=== PATIENT | female | born 1950 | race Caucasian/White ===

== ENCOUNTER 2016-08-21 19:43 | Emergency (ER) | payer MEDICARE ==
[2016-08-21] MEDS ORDERED: NS 0.9% 1000 ML* 1,000 ML IV ONE (21:25)
[2016-08-21] MEDS ORDERED: Insulin REGULAR(*) 1 UNITS UNIT IV PUSH ONE ×2 (21:25→22:35)
[2016-08-21] MEDS ORDERED: Insulin REGULAR(*) 1 UNITS UNIT ONE (22:38)
[2016-08-21 23:40] VITALS: BP 133/59
--- NOTE | 2016-08-22 00:14 | ED ---
Lorenzo Rocha Erika, scribed for Jaylan Stockton MD on 08/21/16 at 2012 . Allergic Reaction/Systemic - HPI Summary HPI Summary: Patient is a 66-year-old female presenting to the ED with a CC of possible allergic reaction tonight. Patient reports that she ate shrimp tonight. She then developed nausea, but did not vomit. When she looked in the mirror, she noticed that her face was red and "blotchy," and states her skin was pruritic. Associated symptoms include slight SOB and lip swelling. She denies any tongue swelling, difficulty swallowing, or a throat closing sensation. Patient was given 50 mg Benadryl en route by EMS - no other medications given. Denies Hx [place]. Hx diabetes, myelodysplasia, asthma. FHx diabetes. Patient does not smoke or drink. - History of Current Complaint Time Seen by Provider: 08/21/16 19:44 Hx Obtained From: Patient Onset/Duration: Gradual Onset, Started hours ago, Still Present Timing: Constant Severity Initially: Mild Severity Currently: Moderate Character: Pruritus, Hives Alleviating Factor(s): Antihistamines - benadryl EMS tx Associated Signs And Symptoms: Positive: Nausea, Rash, Other: - lip swelling - Allergies/Home Medications Allergies/Adverse Reactions: Allergies Allergy/AdvReac Type Severity Reaction Status Date / Time Penicillins Allergy Intermediate Hives Verified 08/02/16 11:32 Adhesive Tape Allergy SKIN PEELS Verified 08/02/16 11:32 IVP DYE Allergy ANAPHYLATIC Uncoded 08/02/16 11:32 SHOCK, ASTHMA NYQUIL Allergy Nausea/Vomi Uncoded 08/02/16 11:32 ting PMH/Surg Hx/FS Hx/Imm Hx Endocrine/Hematology History: Reports: Hx Bone Marrow Disease - MYLEODYSPLASIA - LOW PLATELET COUNTS, Hx Diabetes, Hx Anemia, Other Endocrine/Hematological Disorders - MDS Cardiovascular History: Reports: Hx Hypercholesterolemia, Hx Hypertension, Other Cardiovascular Problems/Disorders - CHOLESTEROL CONTROL WITH MED Respiratory History: Reports: Hx Asthma, Hx Chronic Bronchitis, Hx Chronic Obstructive Pulmonary Disease (COPD) - possible - Lauren says no per pt., Hx Pneumonia, Hx Sleep Apnea - current CPAP user, Other Respiratory Problems/ Disorders - NODULE RIGHT LOWER LOBE, emphysema GI History: Reports: Hx Cirrhosis, Hx Gall Bladder Disease, Hx Gastroesophageal Reflux Disease, Hx Irritable Bowel, Other GI Disorders - hx of fluid around gallbladder and liver History: Reports: Hx Kidney Infection, Other Problems/Disorders - UTI's Musculoskeletal History: Reports: Hx Arthritis - NECK AND RIGHT KNEE, Hx Orthopedic Injury - deranged meniscus, Other Musculoskeletal History Denies: Hx Osteoporosis Sensory History: Reports: Hx Cataracts - surgery, Hx Contacts or Glasses Denies: Hx Hearing Aid Opthamlomology History: Reports: Hx Cataracts - surgery, Hx Contacts or Glasses Neurological History: Reports: Hx Migraine, Other Neuro Impairments/Disorders - DIABETIC NEUROPATHY Psychiatric History: Reports: Hx Depression - HX OF - Cancer History Cancer Type, Location and Year: basal cell carcinoma, nose 1999 [place] Hx Chemotherapy: No Hx Radiation Therapy: No - Surgical History Surgery Procedure, Year, and Place: Bladder suspension, D&C's, ovarian cyst removed, appendectomy, HYSTERECTOMY. L oophorectomy Hx Anesthesia Reactions: No - Immunization History Date of Tetanus Vaccine: up to date Date of Influenza Vaccine: 2014 Infectious Disease History: Denies: Traveled Outside the [place] in Last 30 Days Comment Only: Hx Hepatitis - POSSIBLE NEW DX - Family History Known Family History: Positive: Diabetes - Social History Alcohol Use: None Hx Substance Use: No Substance Use Type: Reports: None Hx Tobacco Use: No Smoking Status (MU): Never Smoked Tobacco Have You Smoked in the Last Year: No Review of Systems ENT: Other - lip swelling Positive: Shortness Of Breath Positive: Nausea. Negative: Vomiting Positive: Rash - itchy All Other Systems Reviewed And Are Negative: Yes Physical Exam - Summary Physical Exam Summary: VITAL SIGNS: Reviewed. GENERAL: Patient is an obese female who is lying comfortable in the stretcher. Patient is not in any acute respiratory distress. HEAD AND FACE: No signs of trauma. No ecchymosis, hematomas or skull depressions. EYES: PERRLA, EOMI x 2, No injected conjunctiva, no nystagmus. EARS: Hearing grossly intact. Ear canals and tympanic membranes are within normal limits. MOUTH: Throat with erythema or exudate, no swelling, open and patent. No tongue swelling. Positive lower lip swelling. NECK: Supple, trachea is midline, no adenopathy, no JVD, no carotid bruit, no c- spine tenderness, neck with full ROM. CHEST: Symmetric, no tenderness at palpation LUNGS: Clear to auscultation bilaterally. No wheezing or crackles. CVS: Regular rate and rhythm, S1 and S2 present, no murmurs or gallops appreciated. ABDOMEN: Soft, non-tender. No signs of distention. No rebound no guarding, and no masses palpated. Bowel sounds are normal. EXTREMITIES: FROM in all major joints, no edema, no cyanosis or clubbing. NEURO: Alert and oriented x 3. No acute neurological deficits. Speech is normal and follows commands. SKIN: Dry and warm. Positive diffuse erythema and hives. Triage Information Reviewed: Yes Vital Signs On Initial Exam: Temp Pulse Resp BP Pulse Ox 98.5 F 109 20 120/81 100 08/21/16 20:03 08/21/16 20:03 08/21/16 20:03 08/21/16 20:03 08/21/16 20:03 Vital Signs Reviewed: Yes Diagnostics - Vital Signs Vital Signs Temp Pulse Resp BP Pulse Ox 08/21/16 20:03 98.5 F 109 20 120/81 100 - Laboratory Lab Statement: Any lab studies that have been ordered have been reviewed, and results considered in the medical decision making process. Re-Evaluation - Re-Evaluation First Eval Re-Evaluation Time: 22:26 Change: Improved Comment: Patient feels much improved and will be discharged at this time Allergic Reaction Course/Dx - Course Assessment/Plan: Patient is a 66-year-old female presenting to the ED with a CC of possible allergic reaction tonight. Patient reports that she ate shrimp tonight. She then developed nausea, but did not vomit. When she looked in the mirror, she noticed that her face was red and "blotchy," and states her skin was pruritic. Associated symptoms include slight SOB and lip swelling. She denies any tongue swelling, difficulty swallowing, or a throat closing sensation. Patient was given 50 mg Benadryl en route by EMS - no other medications given. In the EMS course the pt was given Benadryl. On arrival to the ED pt was given IV fluids, decadron, epinephrine, Pepcid, and an albuterol treatment. After these medications, the pts Sx have significantly improved. After this, she has no lip swelling, tongue swelling, the throat is patent, and she does not feel like her throat is closing. She denies any SOB. We checked the finger stick since the pt was given decadron and it was 359. The pt was given 8 units of insulin and a bit of IV fluids. The second finger stick is 379. The pt was given an additional 10 units of insulin and now the finger stick has improved and now the pt will be discharged home with follow up from her PCP. She will be given a prescription for epi pen, prednisone, Pepcid, and Benadryl. She was also instructed to check her finger sticks more frequently as she will be taking prednisone 10 mg/day for the next four days. Patient was advised to return to the ED should she develop worsening symptoms. She understands and agrees. Pt is A&Ox3 and hemodynamically stable. - Diagnoses Differential Diagnosis/HQI/PQRI: Positive: Anaphylaxis, Angioedema, Local Allergic Reaction, Urticaria Provider Diagnoses: Allergic reaction to food, Hyperglycemia Discharge - Discharge Plan Condition: Stable Disposition: HOME Prescriptions: Diphenhydramine HCl [Benadryl Allergy] 25 mg PO TID PRN #20 tab PRN Reason: Allergy Symptoms Epinephrine [Epipen 2-Rafael] 0.3 mg IM ONCE #1 rafael Famotidine TAB* [Pepcid TAB*] 20 mg PO DAILY #5 tab predniSONE TAB* [Deltasone TAB*] 10 mg PO DAILY #4 tab Patient Education Materials: General Allergic Reaction (ED) Referrals: Go Swanson MD [Primary Care Provider] - The documentation as recorded by the Lorenzo chu Erika accurately reflects the service I personally performed and the decisions made by Mahin acosta Walter, MD.
== END 2016-08-21 23:50 | disposition home or self-care (01) ==
LOC: ED 19:43
DX: T78.1XXA Other adverse food reactions, not elsewhere classified, initial encounter (principal); E11.65 Type 2 diabetes mellitus with hyperglycemia; X58.XXXA Exposure to other specified factors, initial encounter; E78.00 Pure hypercholesterolemia, unspecified; I10 Essential (primary) hypertension; J45.909 Unspecified asthma, uncomplicated; Z85.22 Personal history of malignant neoplasm of nasal cavities, middle ear, and accessory sinuses; E11.40 Type 2 diabetes mellitus with diabetic neuropathy, unspecified; Z88.0 Allergy status to penicillin; D46.9 Myelodysplastic syndrome, unspecified
CPT/HCPCS: 96360; 99283

== ENCOUNTER 2018-06-03 12:10 | Inpatient (IN) | payer MEDICARE ==
[2018-06-03] MEDS ORDERED: NS 0.9% 1000 ML* 1,000 ML IV ONE (12:23)
[2018-06-03] MEDS ORDERED: Insulin REGULAR(*) 1 UNITS UNIT IV ONE (12:23)
[2018-06-03] MEDS ORDERED: Aspirin 81 mg CHEW TAB* 81 MG TAB.CHEW PO ONE (12:23)
--- NOTE | 2018-06-03 12:49 | ED ---
HPI Chest Pain - HPI Summary HPI Summary: This patient is a 68 year old F brought in by EMS presenting to [facility] with a chief complaint of chest pain across her chest radiating to her back last night. She took one nitroglycerin and the symptoms resolved. She was feeling chest pain and weakness this morning and her PCP recommended that she come to [facility]. The chest pain this morning has resolved. Patients teaching specialists is Dr. Enriquez. Patient took Plavix this morning. Patient denies current chest pain, shortness of breath and nausea. The patient is not a smoker. Last Hemoglobin was 11 g/dl. Glucose 460 g/dl per EMS. - History of Current Complaint Chief Complaint: EDChestPainROMI Time Seen by Provider: 06/03/18 12:16 Hx Obtained From: Patient Onset/Duration: Atraumatic Timing: Intermittent Initial Severity: Mild Current Severity: Mild Pain Intensity: 0 Pain Scale Used: 0-10 Numeric Chest Pain Location: Diffuse Chest Pain Radiates: Yes Chest Pain Radiates To:: Back Associated Signs and Symptoms: Positive: Chest Pain, Weakness - Additional Pertinent History Primary Care Physician: [id number] - Allergy/Home Medications Allergies/Adverse Reactions: Allergies Allergy/AdvReac Type Severity Reaction Status Date / Time iodine Allergy Severe Anaphylatic Verified 09/29/17 08:28 Shock Penicillins Allergy Intermediate Hives Verified 09/29/17 08:28 shrimp Allergy Mild Hives Verified 09/29/17 08:28 Adhesive Tape Allergy SKIN PEELS Verified 05/12/17 11:56 IVP DYE Allergy ANAPHYLATIC Uncoded 05/12/17 11:56 SHOCK, ASTHMA NYQUIL AdvReac Nausea/Vomi Uncoded 05/12/17 11:56 ting Home Medications: Home Medications Albuterol HFA INHALER* [Ventolin HFA Inhaler*] 2 puff INH QID PRN 06/03/18 [ History Confirmed 06/03/18] Atorvastatin* [Lipitor*] 40 mg PO DAILY 06/03/18 [History Confirmed 06/03/18] Calcium Carbonate/Vitamin D3 [Calcium 600 + Vit D Tablet] 1 tab PO DAILY [History Confirmed 06/03/18] Clotrimazole/Betamethasone* [Lotrisone Cream*] 1 applic TOPICAL BID PRN [History Confirmed 06/03/18] Docusate CAP* [Colace Cap*] 200 mg PO BEDTIME 06/03/18 [History Confirmed ] EPINEPHrine [Epipen 2-Rafael] 0.3 mg IM ONCE PRN 06/03/18 [History Confirmed ] Ferrous Sulfate TAB* 650 mg PO BID 06/03/18 [History Confirmed 06/03/18] Fluticasone NASAL SPRAY 50MCG* [Flonase NASAL SPRAY 50MCG*] 1 spray BOTH NARES BID 06/03/18 [History Confirmed 06/03/18] Gemfibrozil TAB* [Lopid TAB*] 600 mg PO BID 06/03/18 [History Confirmed ] Ibuprofen TAB* [Motrin TAB* 600 MG] 600 mg PO Q8H PRN 06/03/18 [History Confirmed 06/03/18] Loperamide CAP* [Imodium CAP*] 2 mg PO DAILY PRN 06/03/18 [History Confirmed ] Magnesium Oxide [Magnesium] 1,000 mg PO DAILY 06/03/18 [History Confirmed ] Methylcellulose [Fiber Therapy] 1,500 mg PO DAILY 06/03/18 [History Confirmed ] Metoprolol Succinate XL TAB* [Toprol XL TAB*] 75 mg PO DAILY 06/03/18 [History Confirmed 06/03/18] Nitroglycerin TAB 0.4 MG* 0.4 mg SL Q5M PRN 06/03/18 [History Confirmed 06/03/18 ] Ondansetron ODT TAB* [Zofran 4 MG Odt TAB*] 4 mg PO BID PRN 06/03/18 [History Confirmed 06/03/18] Zolpidem TAB* [Ambien TAB*] 5 - 10 mg PO BEDTIME PRN 06/03/18 [History Confirmed 06/03/18] traMADol TAB* [Ultram*] 50 mg PO TID PRN 06/03/18 [History Confirmed 06/03/18] PMH/Surg Hx/FS Hx/Imm Hx Endocrine/Hematology History: Reports: Hx Bone Marrow Disease - MYLEODYSPLASIA - LOW PLATELET COUNTS, Hx Diabetes, Hx Anemia, Other Endocrine/Hematological Disorders - MDS Cardiovascular History: Reports: Hx Hypercholesterolemia, Hx Hypertension, Other Cardiovascular Problems/Disorders - CHOLESTEROL CONTROL WITH MED Respiratory History: Reports: Hx Asthma, Hx Chronic Bronchitis, Hx Chronic Obstructive Pulmonary Disease (COPD) - possible - Lauren says no per pt., Hx Pneumonia, Hx Sleep Apnea - current CPAP user, Other Respiratory Problems/ Disorders - NODULE RIGHT LOWER LOBE, emphysema GI History: Reports: Hx Cirrhosis, Hx Gall Bladder Disease, Hx Gastroesophageal Reflux Disease, Hx Irritable Bowel, Other GI Disorders - hx of fluid around gallbladder and liver History: Reports: Hx Kidney Infection, Other Problems/Disorders - UTI's Musculoskeletal History: Reports: Hx Arthritis - NECK AND RIGHT KNEE, Hx Orthopedic Injury - deranged meniscus, Other Musculoskeletal History Denies: Hx Osteoporosis Sensory History: Reports: Hx Cataracts - surgery, Hx Contacts or Glasses Denies: Hx Hearing Aid Opthamlomology History: Reports: Hx Cataracts - surgery, Hx Contacts or Glasses Neurological History: Reports: Hx Migraine, Other Neuro Impairments/Disorders - DIABETIC NEUROPATHY Psychiatric History: Reports: Hx Depression - HX OF - Cancer History Cancer Type, Location and Year: basal cell carcinoma, nose 1999 [place] Hx Chemotherapy: No Hx Radiation Therapy: No - Surgical History Surgery Procedure, Year, and Place: Bladder suspension, D&C's, ovarian cyst removed, appendectomy, HYSTERECTOMY. L oophorectomy Hx Anesthesia Reactions: No - Immunization History Date of Tetanus Vaccine: up to date Date of Influenza Vaccine: 2014 Infectious Disease History: No Infectious Disease History: Denies: Traveled Outside the [place] in Last 30 Days Comment Only: Hx Hepatitis - POSSIBLE NEW DX - Family History Known Family History: Positive: Diabetes - Social History Alcohol Use: None Hx Substance Use: No Substance Use Type: Reports: None Hx Tobacco Use: No Smoking Status (MU): Never Smoked Tobacco Have You Smoked in the Last Year: No Review of Systems Negative: Fever Positive: Chest Pain - Radiates to back Positive: Weakness All Other Systems Reviewed And Are Negative: Yes Physical Exam - Summary Physical Exam Summary: Appearance: Well appearing, no pain distress Skin: warm, dry, reflects adequate perfusion. Bruising. Mild pallor on hands. Systolic murmur on heart. Mild kyphosis of her back. No lower extremity edema. Head/face: normal Eyes: EOMI, REINA ENT: mucous membranes moist Neck: supple, non-tender Respiratory: CTA, breath sounds present Cardiovascular: RRR, pulses symmetrical. Systolic murmur. Abdomen: non-tender, soft Bowel Sounds: present Musculoskeletal: normal, strength/ROM intact/ Mild kyphosis. Neuro: normal, sensory motor intact, A&Ox3 Triage Information Reviewed: Yes Vital Signs On Initial Exam: Initial Vitals Temp Pulse Resp BP Pulse Ox 98.9 F 72 16 119/58 97 06/03/18 12:13 06/03/18 12:13 06/03/18 12:13 06/03/18 12:13 06/03/18 12:13 Vital Signs Reviewed: Yes Diagnostics - Vital Signs Vital Signs Temp Pulse Resp BP Pulse Ox 06/03/18 12:13 98.9 F 72 16 119/58 97 - Laboratory Result Diagrams: 06/03/18 12:45 06/03/18 12:45 Lab Statement: Any lab studies that have been ordered have been reviewed, and results considered in the medical decision making process. - Radiology CXR Radiology Interpretation Completed By: Radiologist - Stigmata of obstructive lung disease. No significant chagne in RIGHT lung base nodule. No acute pulmonary or cardiac process evident. - EKG 1233 Cardiac Rate: NL - 69 EKG Rhythm: Sinus Rhythm Summary of EKG Findings: Mild ST-depressions V5, V6, 1, 2. Flipped T-waves in AVL. Chest Pain Course/Dx - Course Course Of Treatment: Patient with history of myelodysplasia presents with chest pain at rest and pallor. Her hemoglobin proved to be 6.6 so we will transfuse 2 units of blood. Baby aspirin given and given nitroglycerin as needed. Did have some lateral ST depressions likely related to her low hemoglobin. Troponin is detected but not elevated at this point. She will require admission for further. Hospitalist to admit. - Chest Pain Differential Diagnosis/HQI/PQRI: Acute OK, ACS, Angina, CHF, Chest Wall, Lower Respiratory Infection, Other: - Anemia - Diagnoses Provider Diagnoses: Unstable angina, Anemia, Myelodysplasia (myelodysplastic syndrome) - Provider Notifications Discussed Care Of Patient With: Sarah Rosas - Hospitalist Time Discussed With Above Provider: 12:57 Instructed by Provider To: Admit As Inpatient - Critical Care Time Critical Care Time: 30-74 min - Critical care time is exclusive of separately billable procedures Discharge - Sign-Out/Discharge Documenting (check all that apply): Patient Departure - Admit - Discharge Plan Condition: Stable Disposition: ADMITTED TO [facility] Referrals: Go Swanson MD [Primary Care Provider] - - Billing Disposition and Condition Condition: STABLE Disposition: Admitted to [facility] - Attestation Statements Document Initiated by Angelique: Yes Documenting Scribe: Desmond Charles Provider For Whom Angelique is Documenting (Include Credential): Gino Fong MD Scribe Attestation: Desmond Rocha, scribed for Gino Fong MD on 06/03/18 at 1411. Scribe Documentation Reviewed: Yes Provider Attestation: The documentation as recorded by the Desmond chu accurately reflects the service I personally performed and the decisions made by me, Gino Fong MD
[2018-06-03] MEDS ORDERED: Insulin REGULAR(*) 1 UNITS UNIT IV PUSH ONE (12:52)
[2018-06-03] MEDS ORDERED: Nitroglycerin 2% OINT* 1 GM PAK TOPICAL ONE (12:57)
[2018-06-03 12:58] LABS: ABS Basophils 0 10^3/ul (0-0.2); ABS Eosinophils 0.3 10^3/ul (0-0.6); ABS Monocytes 0.5 10^3/ul (0-0.8); ABS Neutrophils 5.7 10^3/ul (1.5-7.7); ABS Nucleated RBC 0 10^3/ul; Eosinophil % 3.9 % (0-6); Hematocrit 19 % (35-47); Hemoglobin 6.6 g/dl (12.0-16.0); Lymphocyte % 13.6 % (25-47); Mean Corpuscular HGB Conc 34 g/dl (31-36); Mean Corpuscular Hemoglobin 32 pg (27-31); Mean Corpuscular Volume 95 fL (80-97); Mean Platelet Volume 6.5 fL (7.4-10.4); Nucleated Red Blood Cells % 0.6; Platelet Count 148 10^3/ul (150-450); Red Blood Count 2.03 10^6/ul (4.00-5.40); Red Cell Distribution Width 16 % (10.5-15); White Blood Count 7.6 10^3/ul (3.5-10.8)
[2018-06-03 13:05] LABS: Urine Appearance Clear; Urine Blood 1+ (Negative); Urine Color Straw; Urine Ketones Negative (Negative); Urine Protein Negative (Negative); Urine Red Blood Cell Trace(0-2/hpf) (Absent); Urine Specific Gravity 1.011 (1.010-1.030); Urine Urobilinogen Negative (Negative); Urine White Blood Cell Trace(0-5/hpf) (Absent)
[2018-06-03 13:19] LABS: INR 1.06 (0.77-1.02)
[2018-06-03 13:21] LABS: EGFR Non-African American 38.1 (>60)
[2018-06-03] MEDS ORDERED: Calcium Gluconate INJ* 2 GM in NS 0.9% 100 ML* 100 ML IVPB ONE (14:20)
[2018-06-03] MEDS ORDERED: Pantoprazole IV* 40 MG IV ONE (14:20)
[2018-06-03] MEDS ORDERED: Sodium Polystyrene ORAL.SOL* 15 GM/60 ML BTL PO ONE (14:20)
[2018-06-03] MEDS ORDERED: Dextrose 50% Syringe 50 ML* 25 GM/50 ML SYRINGE IV PUSH PRN (14:20)
[2018-06-03] MEDS ORDERED: Ondansetron INJ* 2 MG/ML VIAL IV PRN (14:20)
[2018-06-03] MEDS ORDERED: traMADol TAB* 50 MG PO PRN (14:24)
[2018-06-03] MEDS ORDERED: Albuterol 2.5 MG/3 ML NEB.SOL* (0.083%) INH PRN (14:24)
[2018-06-03] MEDS ORDERED: Furosemide IV* 10 MG/ML 2 ML VIAL (20 MG) IV SLOW PU ONE (14:30)
[2018-06-03] MEDS: Pantoprazole* 80 mg IN NS 80 MG/250 ML BAG IVPB SCH (14:54)
[2018-06-03] MEDS ORDERED: Octreotide Acetate* 50 MCG in NS 0.9% 50 ML* 50 ML IVPB ONE (17:36)
[2018-06-03] MEDS ORDERED: cefTRIAXone(*) 1 GM in NS 0.9% 50 ML* 50 ML IVPB SCH (18:00)
[2018-06-03] MEDS: Insulin LISPRO* 1 UNITS UNIT SUBCUT SCH (18:19)
[2018-06-03] MEDS ORDERED: Octreotide Acetate* 500 MCG in NS 0.9% 100 ML* 100 ML IVPB SCH (18:30)
[2018-06-03] MEDS: cefTRIAXone(*) 1 GM in NS 0.9% 50 ML* 50 ML IVPB SCH (19:28)
[2018-06-03 19:45] LABS: Hematocrit 21 % (35-47); Hemoglobin 7.1 g/dl (12.0-16.0)
[2018-06-03 20:00] LABS: EGFR Non-African American 35.7 (>60)
[2018-06-03] MEDS: Ferrous Sulfate TAB* 325 MG PO SCH (20:13)
[2018-06-03] MEDS: Docusate CAP* 100 MG PO SCH (20:13)
--- NOTE | 2018-06-03 20:28 | HP ---
CC: Dr. Swanson* HISTORY AND PHYSICAL: DATE OF ADMISSION: 06/03/18 PRIMARY CARE PROVIDER: Dr. Swanson. ATTENDING PHYSICIAN WHILE IN THE HOSPITAL: Sarah Morrison MD* (report dictated by Jesus Chamorro NP). CHIEF COMPLAINT: 1. Chest pain. 2. Dyspnea on exertion. 3. Weakness. HISTORY OF PRESENT ILLNESS: Ms. Mcconnell is a 68-year-old female patient with multiple medical problems. She has a history of myelodysplastic syndrome, in addition to this also is diabetic; has a history of cirrhosis; history of lung nodules that have been stable; history of skin cancer; hypertension; FILIPE, she does wear a CPAP. She has a history of asthma, CAD which is being medically controlled, and a history of hyperlipidemia. She does come into our emergency department today stating that over the last few days she just has not been feeling well. She has been feeling fatigued, she has been feeling lightheaded. She has been having chest discomfort with exertion, she has been short of breath with exertion. She denied having any knowledge of tarry stools. She does state that she has not been taking NSAIDs. She is on Plavix for the history of CAD. She has never had a stent before. She says that she has been just feeling more fatigued. She says that she typically feels this way when her blood was low, but she notes that she had her blood checked about 10 days ago and her hemoglobin was 11. She did have 1 episode of bright red blood per rectum, but none today. She was concerned because she just was not getting any better. She called Dr. Swanson's office, the nurse there was concerned and had her come into the ED. She comes into the ED today. She was initially evaluated and was noted to have EKG changes. There was concern for the chest pressure, but on further evaluation it was noted that her H and H was significantly decreased and because of this, we were asked to evaluate for admission. PAST MEDICAL HISTORY: Significant for: 1. Myelodysplastic syndrome. 2. Diabetes. 3. Cirrhosis. 4. History of lung nodule, which has been stable. 5. Skin cancer. 6. Hypertension. 7. FILIPE. 8. Asthma. 9. CAD. 10. Hyperlipidemia. 11. Aortic stenosis. PAST SURGICAL HISTORY: 1. She has had an appendectomy. 2. Laparoscopic cholecystectomy. 3. D and C x2. 4. Hysterectomy. HOME MEDICATIONS: Include: 1. Ibuprofen 600 mg every 8 hours as needed. 2. Oxybutynin 10 mg p.o. daily. 3. Epinephrine 0.3 mg IM once daily as needed for allergic reaction. 4. Calcium carbonate 1 tablet p.o. daily. 5. Multivitamin 1 tablet daily. 6. Imodium 2 mg p.o. daily as needed. 7. Vitamin C 1000 mg p.o. daily in the morning. 8. Metformin 1000 mg p.o. b.i.d. 9. Glipizide 5 mg p.o. b.i.d. 10. Lisinopril 10 mg p.o. daily. 11. Ferrous sulfate 650 mg p.o. b.i.d. 12. Ventolin 2 puffs inhaled every 4 hours as needed. 13. Singulair 10 mg p.o. daily. 14. Symbicort 2 puffs inhaled b.i.d. 15. Ventolin 2.5 mg inhaled every 4 hours. 16. Magnesium 1000 mg daily. 17. Fiber therapy 1500 mg p.o. daily. 18. Potassium 10 mEq p.o. daily. 19. Omeprazole 40 mg daily. 20. Lotrisone 1 application topically b.i.d. as needed. 21. Lasix 40 mg daily. 22. Zofran 4 mg p.o. b.i.d. as needed. 23. Lipitor 40 mg daily. 24. Ambien 5 to 10 mg p.o. at bedtime as needed. 25. Colace 200 mg p.o. at bedtime. 26. Nitro 0.4 mg sublingual q.5 minutes p.r.n. chest pain x3. 27. Plavix 75 mg daily. 28. Metoprolol XL 75 mg daily. 29. Flonase 1 spray both nares b.i.d. 30. Lopid 600 mg p.o. b.i.d. 31. Tramadol 50 mg p.o. t.i.d. as needed. ALLERGIES TO MEDICATIONS: Include IODINE, PENICILLIN, SHRIMP, TAPE, CT DYE, and NYQUIL. FAMILY HISTORY: Mother had a history of diabetes and CHF. Father had a history of dementia. SOCIAL HISTORY: She does not smoke. She does not drink. Surrogate decision makers are her brother and her niece. REVIEW OF SYSTEMS: There is no documented fever. She denied having any significant weight change. There is no double vision. She denies having any ear discharge. There is no rhinorrhea. There was no sore throat. No thyroid enlargement. There was chest pain per my HPI. There was orthopnea. There was no nocturnal dyspnea. She denied having any abdominal discomfort. There was no vomiting, no diarrhea. No dysuria was reported, no frequency. No seizure, no loss of consciousness. Review of 14 systems was completed, all others negative. PHYSICAL EXAMINATION GENERAL: At this time, Ms. Mcconnell is a 68-year-old female patient. She is chronically ill appearing. She is sitting in the ED stretcher. She does not appear to be in any acute distress. VITAL SIGNS: Blood pressure 133/55, pulse 67, respirations 18, O2 sat 96%, temperature 98.9. HEENT: Head: Atraumatic and normocephalic. Eyes: EOMs are intact. Sclerae anicteric and not pale. Throat: Oral mucosa appears to be moist. No oropharyngeal erythema. NECK: Supple. LUNGS: Clear to auscultation bilaterally. There were no wheezes, rales, or rhonchi. HEART: Sounds S1, S2. Had a regular rate and rhythm. She did have a grade 2- 3 murmur heard in the aortic listening area. There were no rubs or gallops. ABDOMEN: Soft. It was flat, nontender. Bowel sounds were present. EXTREMITIES: Pulses were 2+ throughout. She is able to move all 4 extremities with 5/5 strength. NEUROLOGIC: The patient is awake. She is alert. She is oriented x3. Tongue midline. Ethanol Operator were equal. There were no gross focal deficits. SKIN: Intact. DIAGNOSTIC STUDIES/LAB DATA: WBC of 7.6, RBC of 2.03, hemoglobin of 6.6, hematocrit of 19, and platelet count of 145,000. Her baseline hemoglobin appears to be right around 9, it was 11 on 05/25/18. The INR was 1.06, PTT of 30.4. The sodium was 131, potassium was 5.9, chloride of 98, bicarb was 24, BUN 66, creatinine of 1.37. Her baseline creatinine does appear to be around 0.7, but it was elevated previously at 1.5. The glucose was 319, lactic 2.5, calcium 9.4. Total bili 0.3, AST 20, ALT 18, alk phos 66. Troponin 0.03. Albumin 3.9. TSH pending. Urine showed 1+ blood, 1+ bacteria, 2+ glucose. She did have imaging in the ED starting out with chest x-ray, which showed stigmata of obstructive lung disease, no significant change in right lung base nodule, no acute pulmonary or cardiac process evident. She had an EKG obtained today, which does show a normal sinus rhythm with a rate of 69. She does have some ST depression in lead I, III. She had T-wave inversion in aVR and aVL. There was depression noted in V4, V5 and V6. When you look to the previous EKG, it was there previously, but it is more pronounced today. She did have an echo back in 2016, which revealed EF of 55% to 60%. She did have an echo, which also showed previously that she had moderate aortic stenosis. Old medical records were reviewed. ASSESSMENT AND PLAN: Ms. Mcconnell is a 68-year-old female patient coming into the ED today with complaints of chest pain, dyspnea on exertion, weakness, and not feeling well, on evaluation was noted to have significant anemia. She will be admitted under inpatient status for: 1. Anemia. I am concerned because 10 days ago her hemoglobin was noted to be 11, it is now 6.6. There have been no reports of tarry stools. There was 1 episode of bloody toilet paper, but no other episodes and she is not having abdominal pain. I am concerned that she does have ibuprofen listed on her med list, she says she is not taking it, but I am concerned for possible upper GI bleed. Hemoccult has been ordered and has been sent down and is pending. My plan will be to give her 2 units of blood. I suspect the chest pain, the dyspnea on exertion and weakness is demand ischemia. I am going to go ahead and get 2 units of blood, Lasix in between. Serial H and H have been ordered, 2 peripheral IVs, and I will start her on a PPI drip. I did touch base with GI and they should be evaluating. I am holding her Plavix temporarily as she does not have a recent stent until we can definitively rule out that she is not actively bleeding and we will continue to follow. 2. Myelodysplastic syndrome. Again, I suspect the acute drop in her H and H could be related to bleeding. We are going to give her 2 units of blood and we will continue to follow. She can follow with Dr. Arellano. 3. Diabetes. Lispro sliding scale. 4. History of cirrhosis. This is a nonalcoholic cirrhosis. She can follow with her PCP. 5. History of lung nodule. Follow up with Dr. Arellano. It has been stable. She can follow up with PCP. 6. History of hypertension. I am going to hold all of her medications with the exception of her beta-marissa, which I have switched over to immediate release metoprolol tartrate from succinate in the setting of acute illness. 7. Hyperkalemia, multifactorial. It could be related to the fact that she was on an SHANICE inhibitor, in addition to this also is taking potassium. I am going to give her potassium gluconate. She received insulin here in the ED. We will repeat this. We will get Kayexalate going. In addition to this, we will place her on telemetry and repeat her BMP later tonight. 8. Elevated lactic, probably secondary to the low H and H. She does not appear to be septic. We will repeat this after getting the 2 units of blood. 9. Coronary artery disease. Continue her beta-marissa and statin therapy. Holding the Plavix in the setting of possible bleeding. 10. Hyperlipidemia. Continue her Lopid and statin therapy. 11. Asthma. Continue her p.r.n. nebulizer and her Symbicort. She is stable. 12. Obstructive sleep apnea. I did order CPAP. 13. DVT prophylaxis: SCDs have been ordered. I am holding on heparin given the concern for possible bleeding. 14. Code status: Full code. 15. Fluids, electrolytes, and nutrition: Clear liquid diet has been ordered. TIME SPENT: Time spent on admission was 60 minutes, greater than half of the time was spent [id number] with the patient obtaining my history and physical, other half of the time was spent going over the plan of care with the patient and implementing plan of care. I did discuss the plan of care with my attending, Dr. Morrison; she is in agreement. JESUS CHAMORRO, KAIT [id number]/[facility] #: [id number] GABBY
[2018-06-03] MEDS: Mometasone/Formoter 200/5 MDI INH SCH (21:00)
--- NOTE | 2018-06-03 21:55 | CONS ---
GASTROENTEROLOGY CONSULT NOTE: DATE OF CONSULT: 06/03/18. REQUESTING PROVIDER: Jesus Chamorro NP. REASON FOR CONSULT: Anemia. HISTORY OF PRESENT ILLNESS: Ms. Mcconnell is a 68-year-old woman with a history of CAD on Plavix, obesity, HARTMANN cirrhosis, anemia with a diagnosis of myelodysplasia, diabetes, COPD/asthma, sleep apnea, who was admitted with chest pain and acute-on- chronic anemia. Ms. Mcconnell was in usual state of health until yesterday evening when she had an episode of chest pain, which responded to nitro. This morning she was walking across the parking lot and had a similar episode. She did not take nitro. She was brought in EMS. The chest pain has since improved, although she feels like it is still present a bit when she is moving around. She describes some weakness, but denies any other acute complaints. She was brought to the ER, and was noted to be hemodynamically stable. Labs did reveal a white count of 7.6, hemoglobin of 6.6, hematocrit of 19, platelet count of 148. Sodium of 131 , potassium of 5.9. BUN is 66. Creatinine is 1.37, and a lactic acid of 2.5. The patient's prior labs were reviewed and she was actually noted to have a hematocrit of 33 on 05/25/18, and a hemoglobin of 11 at this time. She denies any overt GI bleeding. She says that she has 2 to 3 soft brown stools a day. She denies seeing any black or bloody stool. She reports some mild chronic nausea which is unchanged. She has not had any emesis. She denies any dysphagia or GERD. She is on a PPI daily. She is on Plavix for her cardiac disease. On review, Ms. Mcconnell with a history of anemia requiring blood transfusions. She was diagnosed with myelofibrosis, and myelodysplasia, and had a bone marrow biopsy in 2016. She has been followed by GI in the past. Most recently, she had an EGD and colon done in October of 2016. At that time, she was noted to have some scarring at the lower esophagus and GE junction. There were no varices noted. There is no significant portal hypertensive gastropathy or GAVE noted. A colonoscopy was done at that time as well which demonstrated only a small rectosigmoid polyp. None of these findings were really felt to give the explanation for her acute anemia at that time. PAST MEDICAL HISTORY: The patient's past medical history is extensive. She has HARTMANN cirrhosis with ascites, CAD on Plavix, diabetes, COPD/asthma, FILIPE, anemia with myelodysplasia, IBS, obesity. PAST SURGICAL HISTORY: D and C, partial hysterectomy, appendectomy, cholecystectomy. MEDICATIONS: MAR reviewed. The patient is on: 1. Albuterol. 2. Atorvastatin. 3. Budesonide/formoterol inhaler. 4. Calcium with vitamin D. 5. Plavix. 6. Iron 2 tablets twice a day. 7. Flonase. 8. Lasix 40 mg daily. 9. Gemfibrozil twice daily. 10. Glipizide 5 mg twice daily. 11. Lisinopril 10 mg daily. 12. Magnesium oxide daily. 13. Metformin 1 g b.i.d. 14. Fiber. 15. Metoprolol XL. 16. Singulair. 17. Multivitamin. 18. Omeprazole 40 mg daily. 19. Oxybutynin. 20. Potassium. 21. Januvia. 22. Tramadol. 23. Ambien. 24. Nitroglycerin as needed. ALLERGIES: IODINE, PENICILLIN, SHRIMP, ADHESIVE TAPE, and IV DYE, and NYQUIL are listed. FAMILY HISTORY: No known history of GI malignancies or IBD. 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 . No smoking, alcohol, or drug use. REVIEW OF SYSTEMS: The patient reports weakness. Full review of systems, otherwise unremarkable except as above. PHYSICAL EXAM: Vital Signs: Temp 98.2, heart rate 65, blood pressure 117/44, 100% on room air. General: Well-appearing, elderly woman, resting in bed, appears chronically ill, but in no acute distress. HEENT: Mucous membranes moist. Anicteric sclerae. Cardiovascular: Regular rate and rhythm. No murmurs , rubs, or gallops. Pulm: Breathing comfortably. Lungs: Clear in anterior lung ny. Abdomen: Soft, possible [id number] ascites, although difficult to determine ascites given body habitus. Mild tenderness diffusely. No rebound tenderness or guarding. Extremities: No jaundice. DIAGNOSTIC STUDIES/LAB DATA: Labs reviewed and summarized in HPI. Again, white count is 7.6, hemoglobin 6.6, hematocrit 19, platelet count 148. MCV 95 and INR 1.06. Sodium 131, potassium 5.9, chloride 98, BUN 66, creatinine 1.37, lactic acid 2.5, glucose 319. AST 20, ALT 18, alk phos 66, bili 0.3. Troponin 0.03. Albumin 3.9. Imaging: EKG with possible mild ST segment depressions in V5, V6, I, and II. Chest x-ray with stigmata of obstructive lung disease. No abdominal imaging done this admission. Endoscopy, EGD, and colonoscopy reports from October of 2016, summarized in HPI. IMPRESSION AND RECOMMENDATIONS: Ms. Mcconnell is a 68-year-old woman with an extensive list of medical comorbidities including HARTMANN cirrhosis with ascites, chronic obstructive pulmonary disease, diabetes and coronary artery disease on Plavix, who was admitted with chest pain and found to have [id number] anemia. Ms. Mcconnell certainly has had an acute drop in her blood counts compared to , at which point her hemoglobin was 11. Currently, her hemoglobin is 6.6. She denies any overt GI bleeding and reports brown stool on a daily basis. She has not had any evidence those of hematemesis. Her MCV is normal arguing against significant iron-deficiency anemia. It is unclear what contribution the patient's myelodysplasia is having to her current anemia, although certainly , she does appear to have had an acute drop, recent concern for possible GI bleed; however, I am reassured that there is no significant active GI bleeding based on history. We will agree with the plan for blood transfusion given symptomatic anemia with chest pain and possible EKG findings of ST segment depression in several leads. Recently, the patient's troponin is normal on admission. 1. Please continue PPI, can switch to IV b.i.d. 2. Can give clear diet for now. 3. We will consider starting ceftriaxone for SBP prophylaxis given concern for possible GI bleeding in a cirrhotic. 4. Consider octreotide drip empirically, although I have quite a low suspicion for a cirrhotic related active bleeding. 5. Please check stool for occult blood. Please also send iron studies. 6. We will defer EGD at this moment given the absence of overt GI bleeding. The patient needs to be resuscitated from a blood transfusion standpoint. Additionally, she has had some changes on her EKG, which needs to be monitored. She also is hyperkalemic, which needs to be treated prior to procedure. We will monitor labs and follow her clinically to determine timing of endoscopic evaluation as I suspect this will likely be necessary given her acute drop in crit. 7. GI will continue to follow. Thank you very much for this consult. [id number]/[facility] #: [id number] GABBY
[2018-06-03] MEDS: Fluticasone NASAL SPRAY 50MCG* 16 gm SPRAY BTL BOTH NARES SCH (23:00)
[2018-06-03] MEDS: Octreotide Acetate* 500 MCG in NS 0.9% 100 ML* 100 ML IVPB SCH (23:30)
[2018-06-03] MEDS: Acetaminophen TAB* 325 MG PO PRN (23:59)
[2018-06-04] MEDS: NS 0.9% 1000 ML* 1,000 ML IV SCH ×2 (00:08→10:21)
[2018-06-04] MEDS: Pantoprazole* 80 mg IN NS 80 MG/250 ML BAG IVPB SCH ×3 (01:13→23:07)
[2018-06-04 01:24] LABS: Hematocrit 23 % (35-47); Hemoglobin 7.7 g/dl (12.0-16.0)
[2018-06-04 05:57] LABS: ABS Basophils 0 10^3/ul (0-0.2); ABS Eosinophils 0.3 10^3/ul (0-0.6); ABS Lymphocytes 0.9 10^3/ul (1.0-4.8); ABS Monocytes 0.4 10^3/ul (0-0.8); ABS Neutrophils 4.4 10^3/ul (1.5-7.7); ABS Nucleated RBC 0 10^3/ul; Eosinophil % 5.3 % (0-6); Hematocrit 23 % (35-47); Hemoglobin 7.9 g/dl (12.0-16.0); Lymphocyte % 14.6 % (25-47); Mean Corpuscular HGB Conc 34 g/dl (31-36); Mean Corpuscular Hemoglobin 31 pg (27-31); Mean Corpuscular Volume 92 fL (80-97); Mean Platelet Volume 6.5 fL (7.4-10.4); Nucleated Red Blood Cells % 0.3; Platelet Count 120 10^3/ul (150-450); Red Blood Count 2.53 10^6/ul (4.00-5.40); Red Cell Distribution Width 17 % (10.5-15)
[2018-06-04 06:06] LABS: INR 1.14 (0.77-1.02)
[2018-06-04 06:15] LABS: EGFR Non-African American 38.4 (>60)
[2018-06-04] MEDS: Mometasone/Formoter 200/5 MDI INH SCH ×2 (07:56→20:24)
[2018-06-04 08:14] LABS: Hematocrit 22 % (35-47); Hemoglobin 7.4 g/dl (12.0-16.0)
--- NOTE | 2018-06-04 08:18 | PN ---
Progress Note - Progress Note Date of Service: 06/04/18 Note: pt seen and examined; feels well, better than yesterday; green bm this am; no blood; no abd pain, n/v; pt denies any blood in stool; heme + EGD/colon in 2016 for same issues; no obvious sources; hgb decreased from 11 about 1.5 wks ago; pt on plavix, off now; denies NSAIDs VS; 98.2, 143/50, 71,20, 97% nad, alert +bs, obese, soft, NT/Nd WBC 6, PLTS 120 INR 1.06 TO 1.14, BUN 56, CR 1.36, TROP 0.03, K 5.2 hgb 7.9, 7.7, 7.1, 6.7 after 2 U 68 yo with multiple medical issues admitted with acute on chronic anemia; no visible blood in stool, heme + given acute decrease in hgb, will plan for EGD tomorrow, does not need colonoscopy agree with protonix, monitor hgb, ok to eat today, EGD in am tomorrow Wilfredo Veliz MD
[2018-06-04] MEDS: Fluticasone NASAL SPRAY 50MCG* 16 gm SPRAY BTL BOTH NARES SCH ×2 (08:51→21:40)
[2018-06-04] MEDS: Insulin LISPRO* 1 UNITS UNIT SUBCUT SCH ×3 (08:51→17:48)
[2018-06-04] MEDS: Metoprolol Tartrate TAB* 25 MG PO SCH ×2 (08:52→21:19)
[2018-06-04] MEDS: Montelukast Sodium TAB* 10 MG PO SCH (08:53)
[2018-06-04] MEDS: Atorvastatin* 40 MG TAB PO SCH (08:53)
[2018-06-04] MEDS: Oxybutynin XL TAB* 5 MG PO SCH (08:53)
[2018-06-04] MEDS: Ferrous Sulfate TAB* 325 MG PO SCH ×2 (08:55→21:20)
[2018-06-04] MEDS: CMC: Fenofibrate(NF) 145 MG TAB PO SCH (10:16)
[2018-06-04] MEDS ORDERED: Insulin LISPRO* 1 UNITS UNIT SUBCUT STA (12:17)
[2018-06-04] MEDS ORDERED: Dextrose 50% Syringe 50 ML* 25 GM/50 ML SYRINGE IV PUSH PRN (12:17)
[2018-06-04] MEDS: Sodium Polystyrene ORAL.SOL* 15 GM/60 ML BTL PO SCH ×2 (12:33→18:04)
[2018-06-04 14:14] LABS: Hematocrit 23 % (35-47); Hemoglobin 7.5 g/dl (12.0-16.0)
--- NOTE | 2018-06-04 16:36 | PN ---
Subjective Date of Service: 06/04/18 Interval History: Pt seen and examined. Meds and labs reviewed. CC: N/A ROS: Denied VENTURA/dizziness, F/C, N/V, CP, SOB, increased cough, sputum production , abd pain, diarrhea, constipation, dysuria, myalgias, arthralgias, throat pain , and new skin lesions. The rest of the 14 point ROS are unremarkable. PHYSICAL EXAM: GEN APPEARANCE: Awake, not in acute distress HEENT: NC/AT, PERRLA, moist oral mucosa, (-) throat erythema NECK: Soft, supple, (-) cervical LAD, (-)JVD HEART: S1S2 WNL, RRR, No MRG CHEST: CTA, BL, GAE, No W/R/R ABD: Soft, ND/NT, NABS 4x Q EXT: No C/C/E SKIN: Warm to touch PSYCH: No active psychosis, hallucinations, depression, SI/HI Objective Active Medications: Acetaminophen (Tylenol Tab*) 650 mg PO Q4H PRN PRN Reason: FEVER/PAIN Last Admin: 06/03/18 23:59 Dose: 650 mg Albuterol (Ventolin 2.5 Mg/3 Ml Neb.Yeni*) 2.5 mg INH Q4H PRN PRN Reason: SHORTNESS OF BREATH Atorvastatin Calcium (Lipitor*) 40 mg PO DAILY [facility] Last Admin: 06/04/18 08:53 Dose: 40 mg Dextrose (D50w Syringe 50 Ml*) 12.5 gm IV PUSH .FOR FS < 60 - SS PRN PRN Reason: FS < 60 Docusate Sodium (Colace Cap*) 200 mg PO BEDTIME [facility] Last Admin: 06/03/18 20:13 Dose: 200 mg Fenofibrate (Tricor(Nf)) 145 mg PO DAILY [facility] Last Admin: 06/04/18 10:16 Dose: 145 mg Ferrous Sulfate (Ferrous Sulfate Tab*) 650 mg PO BID [facility] Last Admin: 06/04/18 08:55 Dose: 650 mg Fluticasone Propionate (Flonase Nasal [place] 50mcg*) 1 spray BOTH NARES BID [facility] Last Admin: 06/04/18 08:51 Dose: 1 spray Pantoprazole Sodium (Protonix Iv Bag*) 80 mg in 250 mls @ 25 mls/hr IVPB Q10H [facility] Last Admin: 06/04/18 12:34 Dose: 25 mls/hr Ceftriaxone Sodium 1 gm/ (Sodium Chloride) 50 mls @ 200 mls/hr IVPB 1930 [facility] Last Admin: 06/03/18 19:28 Dose: 200 mls/hr Octreotide Acetate 500 mcg/ (Sodium Chloride) 101 mls @ 5.05 mls/hr IVPB Q20H [facility] Last Admin: 06/03/18 23:30 Dose: 5.05 mls/hr Insulin Human Lispro (Humalog*) 0 units SUBCUT AC [facility]; Protocol Last Admin: 06/04/18 12:40 Dose: Not Given Metoprolol Tartrate (Lopressor Tab*) 37.5 mg PO BID [facility] Last Admin: 06/04/18 08:52 Dose: 37.5 mg Mometasone Furoate/Formoterol Fumar (Dulera 200/5 Mdi*) 2 puff INH BID [facility]; Protocol Last Admin: 06/04/18 07:56 Dose: 2 puff Montelukast Sodium (Singulair Tab*) 10 mg PO QAM [facility] Last Admin: 06/04/18 08:53 Dose: 10 mg Ondansetron HCl (Zofran Inj*) 4 mg IV Q6H PRN PRN Reason: NAUSEA Oxybutynin Chloride (Ditropan Xl Tab*) 10 mg PO QAM [facility] Last Admin: 06/04/18 08:53 Dose: 10 mg Tramadol HCl (Ultram*) 50 mg PO TID PRN PRN Reason: PAIN Vital Signs - 8 hr 06/04/18 11:11 Temperature 98.1 F Pulse Rate 61 Respiratory 20 Rate Blood Pressure 125/49 (mmHg) O2 Sat by Pulse 98 Oximetry Oxygen Devices in Use Now: None Result Diagrams: 06/04/18 14:02 06/04/18 05:47 Microbiology and Other Data: Microbiology 06/03/18 14:12 Stool Occult Blood (YECENIA) - Final Stool Assess/Plan/Problems-Billing Assessment: - Patient Problems (1) Anemia Current Visit: No Status: Acute Code(s): D64.9 - ANEMIA, UNSPECIFIED SNOMED Code(s): 440949689 Comment: -Continue Octreotide and Pantoprazole gtt -Concern for possible UGIB as cause of sudden anemia being explored, although no melena nor hematochezia, nor BRBPR reportedfor EGD in AM -Appreciate GI F/U visit -If no other focus or suspected focus, consider hematological cause given history of myelodysplastic syndrome -Relatively stable H&H o/n (2) Myelodysplasia (myelodysplastic syndrome) Current Visit: No Status: Acute Code(s): D46.9 - MYELODYSPLASTIC SYNDROME, UNSPECIFIED SNOMED Code(s): 628389224 Comment: -Defer with heme/oncconsider consult/call if EGD negative (3) CKD (chronic kidney disease) Current Visit: Yes Status: Acute Code(s): N18.9 - CHRONIC KIDNEY DISEASE, UNSPECIFIED SNOMED Code(s): 687835360 Comment: -Likely from MDS? -It appears that renal insufficiency started in January -Obtained urine lytes and FENa = 1.36, suggestive of intra-renal disease consistent with above suspicion; awaiting on urine creatinine to calculate FE- Urea to confirm -Awaiting on renal U/S to R/O/eval post-renal failure causes (4) Diabetes mellitus Current Visit: No Status: Acute Code(s): E11.9 - TYPE 2 DIABETES MELLITUS WITHOUT COMPLICATIONS SNOMED Code(s): 49064768 Comment: -Continue current regimen -Will continue to watch FS data (5) DVT prophylaxis Current Visit: No Status: Acute Code(s): AOQ5440 - SNOMED Code(s): 830429690 Comment: -Continue SCDs given above concern for GIB Status and Disposition: -As above
[2018-06-04 21:14] LABS: Hematocrit 21 % (35-47)
[2018-06-04] MEDS: Docusate CAP* 100 MG PO SCH (21:19)
[2018-06-04] MEDS: cefTRIAXone(*) 1 GM in NS 0.9% 50 ML* 50 ML IVPB SCH (21:19)
--- NOTE | 2018-06-04 21:39 | PN ---
Hospitalist Progress Note Date of Service: 06/04/18 called to the bedside due to c/o of sudden onset of chest pain across the chest. ekg was neg nitro paste 0.5 inch applied will do amilcar as per protocol
[2018-06-04] MEDS: Acetaminophen TAB* 325 MG PO PRN (21:41)
[2018-06-04 21:42] LABS: EGFR Non-African American 37.5 (>60)
[2018-06-04] MEDS: Nitroglycerin 2% OINT* 1 GM PAK TOPICAL SCH (21:42)
[2018-06-04] MEDS: Octreotide Acetate* 500 MCG in NS 0.9% 100 ML* 100 ML IVPB SCH (23:05)
[2018-06-05 04:20] LABS: ABS Basophils 0 10^3/ul (0-0.2); ABS Eosinophils 0.2 10^3/ul (0-0.6); ABS Lymphocytes 0.6 10^3/ul (1.0-4.8); ABS Monocytes 0.4 10^3/ul (0-0.8); ABS Neutrophils 4.8 10^3/ul (1.5-7.7); ABS Nucleated RBC 0 10^3/ul; Hematocrit 22 % (35-47); Hemoglobin 7.2 g/dl (12.0-16.0); Lymphocyte % 10.4 % (25-47); Mean Corpuscular HGB Conc 33 g/dl (31-36); Mean Corpuscular Hemoglobin 31 pg (27-31); Mean Corpuscular Volume 93 fL (80-97); Mean Platelet Volume 6.6 fL (7.4-10.4); Nucleated Red Blood Cells % 0.5; Platelet Count 106 10^3/ul (150-450); Red Blood Count 2.34 10^6/ul (4.00-5.40); Red Cell Distribution Width 17 % (10.5-15); White Blood Count 6.2 10^3/ul (3.5-10.8)
[2018-06-05] MEDS: Nitroglycerin 2% OINT* 1 GM PAK TOPICAL SCH ×3 (04:29→16:21)
[2018-06-05] MEDS: Nitro Patch/OINT Remove PATCH OFF SCH ×4 (04:30→21:56)
[2018-06-05 04:35] LABS: EGFR Non-African American 47.6 (>60)
[2018-06-05] MEDS: Mometasone/Formoter 200/5 MDI INH SCH ×2 (07:53→20:48)
[2018-06-05] MEDS: Insulin LISPRO* 1 UNITS UNIT SUBCUT SCH ×3 (08:13→16:53)
[2018-06-05] MEDS: Metoprolol Tartrate TAB* 25 MG PO SCH ×2 (08:22→20:00)
[2018-06-05] MEDS: Atorvastatin* 40 MG TAB PO SCH (08:49)
[2018-06-05] MEDS: CMC: Fenofibrate(NF) 145 MG TAB PO SCH (08:49)
[2018-06-05] MEDS: Ferrous Sulfate TAB* 325 MG PO SCH ×2 (08:50→20:00)
[2018-06-05] MEDS: Oxybutynin XL TAB* 5 MG PO SCH (08:50)
[2018-06-05] MEDS: Fluticasone NASAL SPRAY 50MCG* 16 gm SPRAY BTL BOTH NARES SCH ×2 (08:50→19:59)
[2018-06-05] MEDS: Montelukast Sodium TAB* 10 MG PO SCH (08:50)
[2018-06-05] MEDS: Pantoprazole* 80 mg IN NS 80 MG/250 ML BAG IVPB SCH (08:51)
[2018-06-05] MEDS ORDERED: Magnesium Sulfate IV* 3 GM in NS 0.9% 100 ML* 100 ML IVPB ONE (09:28)
[2018-06-05] MEDS ORDERED: Midazolam* 1 MG/ML 10 ML VIAL (10 MG) ONE (11:00)
[2018-06-05] MEDS ORDERED: Pantoprazole* 80 mg IN NS 80 MG/250 ML BAG IVPB SCH (11:00)
[2018-06-05] MEDS ORDERED: fentaNYL* 50 MCG/ML 2 ML VIAL (100 MCG VIAL) ONE (11:00)
--- NOTE | 2018-06-05 11:21 | ECHO ---
Patient: ADINA AVILA [facility] Rec#: [id number] : 1950 Date: 06/05/2018 Age: 68y Height: 152 cm / 59.8 in Weight: 79.6 kg / 175.4 lbs Sex: F BSA: 1.76 Room#: [facility] Admit Date#: 06/03/2018 Type: Inpatient Referring: Naomy Danielson Reading: Katy Peralta MD Crime Specialist: Jerilyn Rutledge RDCS CC: Juan Luis Enriquez MD CC: DAYLNI LYNN Transthoracic Echocardiogram Indication: Chest pain BP: 126/57 HR: 66 Rhythm: NSR Findings History: HTN, DM, obesity, FILIPE, anemia, CAD, HLD, . This is a LIMITED study to evaluated left ventricular systolic function. Technical Comments: The study quality is fair. Completed at 1100. Left Ventricle: The left ventricular chamber size is normal. Global left ventricular wall motion and contractility are within normal limits. There is normal left ventricular systolic function. The estimated ejection fraction is 55-60%. Right Ventricle: The right ventricular cavity size is normal. The right ventricular global systolic function is normal. Aortic Valve: There is mild aortic regurgitation. Pericardium: There is no significant pericardial effusion. Conclusions The study quality is fair. Limited study. The left ventricular chamber size is normal. Global left ventricular wall motion and contractility are within normal limits. The estimated ejection fraction is 55-60%. No diastolic evaluation performed. The right ventricular global systolic function is normal. There is mild aortic regurgitation. Prior study of 05/13/18 performed, showed mild LVH, EF 55-60%, moderate . EF and wall motion are stable. Measurements Name Value Normal Range AR PHT 413 msec -
--- NOTE | 2018-06-05 16:16 | PN ---
Subjective Date of Service: 06/05/18 Interval History: Pt seen and examined. Meds and labs reviewed. The pt complained of CP last night. Pt given nitropaste. No EKG changes. Pls see discussion below CC: Pt feels weak ROS: Denied VENTURA/dizziness, F/C, N/V, CP, SOB, increased cough, sputum production , abd pain, diarrhea, constipation, dysuria, myalgias, arthralgias, throat pain , and new skin lesions. The rest of the 14 point ROS are unremarkable. PHYSICAL EXAM: GEN APPEARANCE: Awake, not in acute distress HEENT: NC/AT, PERRLA, moist oral mucosa, (-) throat erythema NECK: Soft, supple, (-) cervical LAD, (-)JVD HEART: S1S2 WNL, RRR, No MRG CHEST: CTA, BL, GAE, No W/R/R ABD: Soft, ND/NT, NABS 4x Q EXT: No C/C/E SKIN: Warm to touch PSYCH: No active psychosis, hallucinations, depression, SI/HI Objective Active Medications: Acetaminophen (Tylenol Tab*) 650 mg PO Q4H PRN PRN Reason: FEVER/PAIN Last Admin: 06/04/18 21:41 Dose: 650 mg Albuterol (Ventolin 2.5 Mg/3 Ml Neb.Yeni*) 2.5 mg INH Q4H PRN PRN Reason: SHORTNESS OF BREATH Atorvastatin Calcium (Lipitor*) 40 mg PO DAILY [facility] Last Admin: 06/05/18 08:49 Dose: Not Given Dextrose (D50w Syringe 50 Ml*) 12.5 gm IV PUSH .FOR FS < 60 - SS PRN PRN Reason: FS < 60 Docusate Sodium (Colace Cap*) 200 mg PO BEDTIME [facility] Last Admin: 06/04/18 21:19 Dose: 200 mg Fenofibrate (Tricor(Nf)) 145 mg PO DAILY [facility] Last Admin: 06/05/18 08:49 Dose: Not Given Ferrous Sulfate (Ferrous Sulfate Tab*) 650 mg PO BID [facility] Last Admin: 06/05/18 08:50 Dose: Not Given Fluticasone Propionate (Flonase Nasal [place] 50mcg*) 1 spray BOTH NARES BID [facility] Last Admin: 06/05/18 08:50 Dose: Not Given Ceftriaxone Sodium 1 gm/ (Sodium Chloride) 50 mls @ 200 mls/hr IVPB 1930 [facility] Last Admin: 06/04/18 21:19 Dose: 200 mls/hr Insulin Human Lispro (Humalog*) 0 units SUBCUT AC [facility]; Protocol Last Admin: 06/05/18 13:43 Dose: 6 units Metoprolol Tartrate (Lopressor Tab*) 37.5 mg PO BID [facility] Last Admin: 06/05/18 08:22 Dose: 37.5 mg Mometasone Furoate/Formoterol Fumar (Dulera 200/5 Mdi*) 2 puff INH BID [facility]; Protocol Last Admin: 06/05/18 07:53 Dose: Not Given Montelukast Sodium ([facility]ulair Tab*) [facility] Admin: 06/05/18 08:50 Dose: Not Given Ondansetron HCl (Zofran Inj*) 4 mg IV Q6H PRN PRN Reason: NAUSEA Oxybutynin Chloride (Ditropan Xl Tab*) 10 mg PO [facility] Last Admin: 06/05/18 08:50 Dose: Not Given Pantoprazole Sodium (Protonix Tab (Nf)) 40 mg PO BID [facility] Pharmacy Profile Note (Nitro Patch/Oint Remove*) 1 note PATCH OFF Q6H [facility] Last Admin: 06/05/18 10:07 Dose: 1 patch Tramadol HCl (Ultram*) 50 mg PO TID PRN PRN Reason: PAIN Vital Signs - 8 hr 06/05/18 06/05/18 06/05/18 08:33 12:53 15:31 Temperature 97.7 F 98.7 F 99.4 F Pulse Rate 89 75 73 Respiratory 20 24 Rate Blood Pressure 137/52 133/54 151/56 (mmHg) O2 Sat by Pulse 91 95 98 Oximetry Oxygen Devices in Use Now: None Result Diagrams: 06/05/18 04:13 06/05/18 04:13 Microbiology and Other Data: Microbiology 06/03/18 14:12 Stool Occult Blood (YECENIA) - Final Stool Assess/Plan/Problems-Billing Assessment: - Patient Problems (1) Anemia Current Visit: No Status: Acute Code(s): D64.9 - ANEMIA, UNSPECIFIED SNOMED Code(s): 197005964 Comment: -S/P EGD this afternoon: Very friable gastric cardia mucosa with erosions with signs of recent hemorrhage but no current active bleeding -Will D/C Octreotide and Pantoprazole gtt and place pt on PO BID of Pantoprazole as ordered -Concern for possible UGIB as cause of sudden anemia being explored, although no melena nor hematochezia, nor BRBPR reportedfor EGD in AM -Relatively stable H&H o/n (2) Myelodysplasia (myelodysplastic syndrome) Current Visit: No Status: Acute Code(s): D46.9 - MYELODYSPLASTIC SYNDROME, UNSPECIFIED SNOMED Code(s): 848084200 Comment: -Defer with heme/oncconsider consult/call if EGD negative (3) CKD (chronic kidney disease) Current Visit: Yes Status: Acute Code(s): N18.9 - CHRONIC KIDNEY DISEASE, UNSPECIFIED SNOMED Code(s): 378332109 Comment: -Likely from MDS? -It appears that renal insufficiency started in January -Obtained urine lytes and FENa = 1.36, suggestive of intra-renal disease consistent with above suspicion; FE-Urea = 63.97, supportive of above suspicion -Renal U/S to shows no evidence of hydronephrosis nor post-renal cause of RI (4) Diabetes mellitus Current Visit: No Status: Acute Code(s): E11.9 - TYPE 2 DIABETES MELLITUS WITHOUT COMPLICATIONS SNOMED Code(s): 36185904 Comment: -Continue current regimen -Will continue to watch FS data -Pt only on PO meds at home and has not repeat HBa1c in our system since 2016--- will order Hba1c in AM (5) DVT prophylaxis Current Visit: No Status: Acute Code(s): RVK8937 - SNOMED Code(s): 046510064 Comment: -Continue SCDs given above concern for GIB Status and Disposition: -For PT eval given complaint of weakness -For possible D/C in 1-2 days
[2018-06-05] MEDS: Octreotide Acetate* 500 MCG in NS 0.9% 100 ML* 100 ML IVPB SCH (17:04)
[2018-06-05] MEDS: cefTRIAXone(*) 1 GM in NS 0.9% 50 ML* 50 ML IVPB SCH (19:43)
[2018-06-05] MEDS: Acetaminophen TAB* 325 MG PO PRN (20:00)
[2018-06-05] MEDS: Docusate CAP* 100 MG PO SCH (20:00)
[2018-06-05] MEDS: Pantoprazole TAB (NF) 40 MG TAB PO SCH (20:09)
--- NOTE | 2018-06-05 22:41 | PRO ---
CC: Dr. Swanson * DATE OF PROCEDURE: 06/05/18 - ROOM #444 PROCEDURE: EGD. INDICATION: Anemia. REFERRING PHYSICIAN: Dr. Swanson. MEDICATIONS GIVEN: 25 mcg IV Fentanyl, 4 mg IV Versed. DESCRIPTION OF PROCEDURE: After the EGD procedure including the risks, benefits , and alternatives not limited to perforation, surgery, and/or were explained to Mrs. Mcconnell, written consent was then obtained. IV medication was given, and a bite block was placed between the teeth. An Olympus gastroscope was then inserted into the patient's mouth, advanced down the esophagus, into the stomach, and into the distal duodenum. In the esophagus at the GE junction , the Z-line was intact. No erosive esophagitis, stricture, or ring was seen. No varices were seen. The scope advanced through the GE junction into the body of the stomach. Unfortunately, I could not retroflex the scope, every time I did it created mucosal oozing and trauma. Very careful and thorough inspection within the cardia did reveal what appeared to be a thickened fold. There did not appear to be a mass. When I washed it, it appeared to have normal mucosa overlying mucosa. It did flatten with insufflation somewhat. I do not think that this was a gastric varix either. The patient did had numerous erosions throughout the entirety of her stomach. There was stigmata of hemorrhage, but nothing actively bleeding. The scope was advanced through the GE junction through the pylorus into the duodenal bulb, it was unremarkable. The scope was then withdrawn from the patient. She tolerated the procedure well and was returned to the hospital room in stable condition. IMPRESSION: 1. Complete upper endoscopy into the duodenum. 2. Gastric erosions with stigmata of hemorrhage nothing active. 3. Anemia. 4. I would recommend that she be put on twice a day PPI with close monitoring of her hemoglobin. [id number]/[facility] #: [id number] GABBY
[2018-06-06 05:24] LABS: ABS Basophils 0 10^3/ul (0-0.2); ABS Eosinophils 0.2 10^3/ul (0-0.6); ABS Lymphocytes 0.9 10^3/ul (1.0-4.8); ABS Monocytes 0.5 10^3/ul (0-0.8); ABS Neutrophils 5.9 10^3/ul (1.5-7.7); ABS Nucleated RBC 0 10^3/ul; Eosinophil % 2.9 % (0-6); Hematocrit 21 % (35-47); Hemoglobin 7.1 g/dl (12.0-16.0); Mean Corpuscular HGB Conc 33 g/dl (31-36); Mean Corpuscular Hemoglobin 31 pg (27-31); Mean Corpuscular Volume 94 fL (80-97); Mean Platelet Volume 6.8 fL (7.4-10.4); Nucleated Red Blood Cells % 0.1; Platelet Count 123 10^3/ul (150-450); Red Blood Count 2.28 10^6/ul (4.00-5.40); Red Cell Distribution Width 18 % (10.5-15); White Blood Count 7.6 10^3/ul (3.5-10.8)
[2018-06-06 05:42] LABS: EGFR Non-African American 61.1 (>60)
[2018-06-06] MEDS: Nitro Patch/OINT Remove PATCH OFF SCH (06:34)
[2018-06-06] MEDS: Mometasone/Formoter 200/5 MDI INH SCH (07:39)
[2018-06-06] MEDS: Insulin LISPRO* 1 UNITS UNIT SUBCUT SCH ×2 (08:02→12:16)
[2018-06-06] MEDS: Oxybutynin XL TAB* 5 MG PO SCH (08:02)
[2018-06-06] MEDS: Fluticasone NASAL SPRAY 50MCG* 16 gm SPRAY BTL BOTH NARES SCH (08:02)
[2018-06-06] MEDS: Ferrous Sulfate TAB* 325 MG PO SCH (08:03)
[2018-06-06] MEDS: Montelukast Sodium TAB* 10 MG PO SCH (08:03)
[2018-06-06] MEDS: Metoprolol Tartrate TAB* 25 MG PO SCH (08:03)
[2018-06-06] MEDS: Atorvastatin* 40 MG TAB PO SCH (08:03)
[2018-06-06] MEDS: Pantoprazole TAB (NF) 40 MG TAB PO SCH (08:04)
[2018-06-06] MEDS: CMC: Fenofibrate(NF) 145 MG TAB PO SCH (08:04)
[2018-06-06 13:53] VITALS: BP 119/51
--- NOTE | 2018-06-07 01:09 | DS ---
CC: Sarah Morrison MD; Kesha Mitchell MD; Go Swanson MD DISCHARGE SUMMARY: DATE OF ADMISSION: 06/03/18 DATE OF DISCHARGE: 06/06/18 DISCHARGE DIAGNOSES: 1. Anemia likely secondary to gastric erosions and friable gastric mucosa on the gastric cardia with stigmata of recent bleed with no active bleed at this time of EGD. 2. Anemia secondary to above. 3. History of myelodysplastic syndrome. 4. History of diabetes mellitus. DISCHARGE MEDICATIONS: 1. Tylenol 650 mg p.o. q.6 p.r.n. 2. Albuterol nebulization 2.5 mg inhalation q.4 p.r.n. 3. Atorvastatin 40 mg p.o. daily. 4. Symbicort 160/4.5 two puffs inhalation b.i.d. 5. Colace 200 mg p.o. q.h.s. 6. Ferrous sulfate 650 mg p.o. b.i.d. 7. Fluticasone nasal spray 1 spray to both nares b.i.d. 8. Gemfibrozil 600 mg p.o. b.i.d. 9. Montelukast 10 mg p.o. q.a.m. 10. Oxybutynin 10 mg p.o. q.a.m. 11. Pantoprazole 40 mg p.o. b.i.d. The patient given 90 tabs with 0 refills. 12. Tramadol 50 mg p.o. t.i.d. 13. Albuterol HFA 2 puffs inhalation 4 times a day p.r.n. 14. Ascorbic acid 1000 mg p.o. q.a.m. 15. Calcium carbonate with vitamin D3 one tab p.o. daily. 16. Clotrimazole/betamethasone (Lotrisone cream) 1 application topically b.i.d. p.r.n. 17. Epinephrine 0.3 mL/0.3 mg IM p.r.n. 18. Glipizide 5 mg p.o. b.i.d. 19. Loperamide 2 mg p.o. daily p.r.n. 20. Metformin 1000 mg p.o. b.i.d. 21. Methylcellulose 1500 mg p.o. daily. 22. Metoprolol succinate 75 mg p.o. daily. 23. Multivitamins 1 tab p.o. daily. 24. Nitroglycerin 0.4 mg sublingual q.5 minutes p.r.n. 25. Discontinue omeprazole because the patient is going to be on pantoprazole. 26. Ondansetron 4 mg p.o. b.i.d. 27. Sitagliptin or Januvia 100 mg p.o. daily. 28. Zolpidem 5 to 10 mg p.o. q.h.s. p.r.n. HISTORY OF PRESENT ILLNESS/HOSPITAL COURSE: The patient is a 68-year-old lady with history of diabetes, hypertension, and myelodysplastic syndrome, as well as cirrhosis who has been complaining of some dyspnea on exertion as well as chest pain and weakness. She mentions that for the last few days she had not been feeling well and feeling fatigued and lightheaded along with the above symptoms she has described and was found to have a sudden drop in her H and H in a span of 10 days from 11 to 6.6. She was initially placed on octreotide and pantoprazole drip with a suspicion of an upper GI bleed. An EGD was done by Dr. Veliz who reported a friable gastric mucosa in the gastric cardia with a gastric erosion seen that has recently bled, but with no sites that were found to be actively bleeding. Postprocedure she has done well, the octreotide drip and pantoprazole drip has been discontinued after the patient has been transitioned to oral PPI b.i.d. as suggested by Dr. Veliz. During her hospitalization stay, her diuretics as well as lisinopril were held and we will continue to hold this at this time until she repeats her labs as an outpatient and gets reevaluated by her PCP and hence will defer. Her chest pain is likely secondary to symptomatic anemia as well as her shortness of breath. Her 5 sets of troponins were all found to be normal. She did have a 2D echo on 06/05/18 which did not reveal any wall motion abnormalities and was found to have an EF of 55% to 60%. Initially during her hospital course, there is a question whether she might have had a recent chronic kidney disease that developed in her previous hospitalization back in January. However, the increased BUN was likely secondary to her upper GI bleed due to her friable mucosa and although when she was admitted her creatinine was also mildly elevated, it was at baseline compared to January. Yet previous to this on previous admissions, her renal functions have been normal. She has been transfused with blood during her hospitalization stay, especially prior to the procedure as well as fluid resuscitated which normalized her renal function. I suspect that a mild increase of her creatinine might be due to intermittent GI bleed causing some volume loss, and the elevated BUN is likely due to the GI bleed that is discussed, but we will defer with the patient's PCP to follow up as an outpatient given the patient did not have a diagnosis of CKD and now with normal renal function. The patient did also have a renal ultrasound which did not show any hydronephrosis nor nephrolithiasis. She had been advised to follow up and call her PCP within 3 days postdischarge. She had been advised to have her blood drawn this coming Friday on 06/10/18 and discuss the results with her PCP. Her labs that are to be repeated on that day are H and H, potassium, and magnesium levels. She had been advised to follow up with Dr. Veliz in 4 weeks and to call his office to make an appointment. She was advised to discuss how long he prefers her to be on twice daily Protonix on her followup. She was advised to continue holding her Plavix and discuss this with her PCP to see when the best time is to restart Plavix. She was advised to avoid oral NSAIDs such as ibuprofen, Aleve, naproxen, etc. She has been made aware and was advised to continue holding her Lasix and lisinopril given her diastolic blood pressure is mildly low and otherwise, her BP is well controlled. She was asked instead to continue on a low-salt diet, heart-healthy consistent carbohydrate diet, and to discuss this with her PCP, if these medications can be resumed in the future on her followup. She was made aware that because her diuretics have been held and because her magnesium and potassium levels were found to be normal on discharge, we will continue to hold her potassium and magnesium supplementations as well while her diuretic is being withheld to avoid accidental overdose. She was advised to make sure that her blood is drawn on Friday as discussed above and to discuss the results with her PCP. She was advised that if her symptoms resume or develop new ones or feel unwell for any reason, to call her PCP first. If the PCP cannot entertain her due to scheduling issues alone, to call [facility] if the issue is considered nonemergent. She was advised to call my office regarding any questions, concerns, or further clarifications regarding our discharge plans and/or prescriptions and to take her medications as prescribed. REVIEW OF SYSTEMS: The patient denied any current headaches, dizziness, fevers , chills, nausea, vomiting, chest pain, shortness of breath, increased cough, or sputum production, abdominal pain, diarrhea, constipation, pain, and/or increased frequency on urination, myalgias, arthralgias, throat pain, or new skin lesions. The rest of the 14-point review of systems are otherwise unremarkable. PHYSICAL EXAMINATION: Shows the most recent vital signs of records with blood pressure of 125/49 from 118/43 and from previous of 132/46. 98.5 degrees Fahrenheit temperature, 83 beats per minute heart rate, 18 per minute respiratory rate, saturating at 100% room air. General Appearance: The patient is awake, alert, and oriented x3; not in acute distress. HEENT: Normocephalic and atraumatic. PERRLA. Extraocular muscles intact. Negative for icterus, moist oral mucosa, negative throat erythema. Neck is soft and supple with no cervical lymphadenopathy, no JVD. Heart: S1 and S2 within normal limits. Regular rate and rhythm. No murmurs, rubs, or gallops. Chest: Clear to auscultation bilaterally. Good air entry. No wheezes, rales, or rhonchi. Abdomen is soft, nondistended, nontender. Normoactive bowel sounds x4 quadrants. Extremities: No cyanosis, clubbing, nor edema. Psychiatric: No active psychosis, depression, suicidal or homicidal ideation. Skin is warm to touch. TIME SPENT: The total time spent evaluating the patient, reviewing pertinent data, and appropriate documentation is 65 minutes. [id number]/[facility] #: [id number] MTDD
== END 2018-06-06 14:10 | disposition home or self-care (01) | DRG 811 ==
LOC: ED 12:10 → MEDTELE 14:15
PROVIDERS: ADMIT Internal Medicine; ATTEND Student in an Organized Health Care Education/Training Program
PROC: 30233N1 Transfusion of Nonautologous Red Blood Cells into Peripheral Vein, Percutaneous Approach (ICD-10-PCS; principal; 2018-06-03)
PROC: 0DJ08ZZ Inspection of Upper Intestinal Tract, Via Natural or Artificial Opening Endoscopic (ICD-10-PCS; 2018-06-05)
DX: D50.0 Iron deficiency anemia secondary to blood loss (chronic) (principal); K25.4 Chronic or unspecified gastric ulcer with hemorrhage; D46.9 Myelodysplastic syndrome, unspecified; E11.22 Type 2 diabetes mellitus with diabetic chronic kidney disease; J44.9 Chronic obstructive pulmonary disease, unspecified; K74.69 Other cirrhosis of liver; I13.10 Hypertensive heart and chronic kidney disease without heart failure, with stage 1 through stage 4 chronic kidney disease, or unspecified chronic kidney disease; I35.0 Nonrheumatic aortic (valve) stenosis; N18.9 Chronic kidney disease, unspecified; I25.10 Atherosclerotic heart disease of native coronary artery without angina pectoris; E66.9 Obesity, unspecified; R07.9 Chest pain, unspecified; G47.33 Obstructive sleep apnea (adult) (pediatric); K58.9 Irritable bowel syndrome, unspecified; R91.1 Solitary pulmonary nodule; Z68.34 Body mass index [BMI] 34.0-34.9, adult; Z79.84 Long term (current) use of oral hypoglycemic drugs; Z79.1 Long term (current) use of non-steroidal anti-inflammatories (NSAID); Z79.02 Long term (current) use of antithrombotics/antiplatelets; Z79.899 Other long term (current) drug therapy; Z91.041 Radiographic dye allergy status; Z88.0 Allergy status to penicillin; Z91.013 Allergy to seafood; Z88.8 Allergy status to other drugs, medicaments and biological substances; Z91.048 Other nonmedicinal substance allergy status; Z83.3 Family history of diabetes mellitus; Z82.49 Family history of ischemic heart disease and other diseases of the circulatory system; E87.5 Hyperkalemia
CPT/HCPCS: 36415; 71045; 76770; 80048; 80053; 81003; 81015; 82272; 82570; 82607; 82728; 82746; 82947; 83036; 83540; 83550; 83605; 83735; 84100; 84300; 84443; 84484; 84540; 85014; 85018; 85025; 85610; 85730; 86850; 86900; 86901; 86905; 86922; 87077; 87086; 87186; 93005; 93308; 94640; 94660; 96374; 99156; 99284; A9270-GY; G8978-GP-CI; G8979-GP-CI; G8980-GP-CI; J0610; J0696; J1940; J2250; J2354; J3010; J3475; P9040

== ENCOUNTER 2019-09-28 07:51 | Emergency (ER) | payer MEDICARE ==
--- OUTSIDE RECORDS SUMMARY | 2019-09-28 08:07 | XMS REPORT | Continuity of Care Document ---
:1950 External Reference #:[id number] Author Name Juan Luis Enriquez M.D., [facility], [facility] (transmitted by agent of provider Rosio Vizcaino) Address [address] [place] [address] Care Team Providers Name Role Phone Juan Luis Enriquez MD, [facility], [facility] - Care Team Information Audio Tape Librarian Cardiovascular Disease [facility] - Care Team Information Audio Tape Librarian Batch Heat Treat Operator Jessica Eddy MD - Dermatology Care Team Information Audio Tape Librarian Mariza Bishop MD - Care Team Information Audio Tape Librarian [phone] Dermatology Destin Rowe MD - Er Nurse Care Team Information Audio Tape Librarian [phone] Kenia Welch M.D. - Family Medicine Care Team Information Audio Tape Librarian [phone] Problems Active Problems Provider Date Myelodysplastic syndrome (clinical) Ozzie Craft NP Onset: 04/12/2016 Type 2 diabetes mellitus Go Swanson M.D. Onset: 04/22/2011 Benign essential hypertension Go Swanson M.D. Onset: 04/22/2011 Mixed hyperlipidemia Go Swanson M.D. Onset: 04/22/2011 Asthma without status asthmaticus Go Swanson M.D. Onset: 04/22/2011 Obstructive sleep apnea syndrome Go Swanson M.D. Onset: 04/22/2011 Nonalcoholic steatohepatitis Staci Cuello M.D. Onset: 12/07/2013 Solitary nodule of lung Staci Cuello M.D. Onset: 07/25/2014 Note: followed by Dr. Aguilar Morbid obesity Go Swanson M.D. Onset: 10/11/2014 Aortic valve disorder Juan Luis Enriquez M.D., [facility], Onset: 11/22/2014 [facility] Gastroesophageal reflux disease Go Swanson M.D. Onset: 06/12/2015 Shoulder joint pain Go Swanson M.D. Onset: 06/13/2016 Insomnia Go Swanson M.D. Onset: 01/16/2017 Chest pain Juan Luis Enriquez M.D., [facility], Onset: 04/07/2017 [facility] Anemia Go Swanson M.D. Onset: 06/11/2018 Low back pain Abdifatah Saavedra MD Onset: 08/28/2018 Thoracic and lumbosacral neuritis Abdifatah Saavedra MD Onset: 08/28/2018 Social History Type Date Description Comments Sex Unknown Tobacco Use Start: Unknown End: Former Cigarette Smoker briefly in 30s Unknown Smoking Status Reviewed: 08/18/19 Former Cigarette Smoker briefly in 30s ETOH Use Denies alcohol use Recreational Drug Use Never Used Drugs Tobacco Use Start: Unknown Patient has never smoked Exercise Type/Frequency Exercises rarely Allergies, Adverse Reactions, Alerts Active Allergies Reaction Severity Comments Date Penicillin hives Moderate 09/12/2010 Dye Anaphylaxis Severe 09/12/2010 DayQuil 03/12/2016 Shrimp Anaphylaxis, Urticaria Severe 08/22/2016 Aspirin 04/02/2017 Medications Active Medications SIG Qnty Indications Ordering Date Provider Pantoprazole Sodium 1 by mouth every Lemberg, 40mg day( taking 1 po MD Wilfredo [address] twice daily) Hydrochlorothiazide 1 by mouth every 90tabs I10 Kenia Welch, 25mg day 9 Tablets Metoprolol Succinate ER 1 1/2 by mouth 135tabs Juan Luis Redd 50mg every day Pau Enriquez, 9 Tablets ER 24HR [facility], [facility] Acetaminophen-Codeine #3 Take 1 To 2 90tabs M51.16 Staci Tablets By Mouth Pau Cuello 9 300-30mg Tablets Every 4 Hours as Needed For Pain; Maximum Daily Dose = 4 Ammonium Lactate apply topically to Jae 12% Lotion affected areas MD Destin 9 once daily Januvia once daily 90tabs E11.40 Kenia Welch, 50mg Tablets MD Murphy Gemfibrozil take one tablet by 180tabs Kenia Welch, 600mg Tablets mouth twice a day MD Murphy Fluticasone Propionate 1 act each nostril 16gm R09.81 Zsofia twice daily BRYN Santoyo 8 50mcg/Act Suspension Nitroglycerin if feel chest 30tabs Kenia Welch, 0.4mg Tablets pain,may take up MD Eason Sub to 3 total 5 min apart but call 911 if have chest pain after 3rd nitroglycerin tablet. Onetouch Lancets check blood sugar 100units E11.40 Vick Borden Misc 4times daily and Jenaro Jj as needed. 12/30/17 M.D.,FACP last visit Onetouch Ultra Blue test bs four times 100units [facility]11.40 [facility] daily as needed MD Eason Onetouch Ultra 2 check blood sugar 1units E11.40 [place] w/Device Kit 4 times daily and Jenaro Swanson prn, 01/16/17 last M.D. visit, Colace 2 cap at bedtime 60caps [place] 100mg Capsules Kiki 7 M.DLois Zolpidem Tartrate 1/2 to 1 tab by 30tabs G47.00 Kenia Welch, 10mg mouth every night MD Eason Tablets at bedtime as needed Ondansetron take one tablet by 10tabs K21.9 Kenia Welch, 4mg Tablets mouth twice a day MD Eason Dispers as needed for nausea Atorvastatin Calcium take one tablet by 90tabs E78.2 Kenia Welch, 40mg mouth every day MD Eason Tablets Fiber Therapy 3 tabs daily Unknown 500mg Tablets 6 Albuterol Sulfate use 1 vial via 120units J45.20 [place] (2.5mg/3ML) nebulizer every 4 Pachikara, 5 0.083% Nebulizer hours as needed M.D. Nebuliser Machine diagnosis: asthma 1units J45.20 Go Pachikara, 5 M.D. Montelukast Sodium take one tablet by 90tabs R09.82 Zsofia 10mg mouth every day Natanael, HAT LACER 5 Tablets Symbicort inhale two puffs 10.2units R06.00 Nataly Geneva, 160-4.5mcg/Act by mouth twice a M.D., FACP 3 Aerosol day. Ventolin HFA Inhale 2 Puffs By 18units Zsofia 108(90Base) Mouth 4 Times Natanael, HAT LACER 3 mcg/Act Aerosol Daily as Needed Glipizide take one tablet by 180tabs D50.9 Staci 5mg Tablets mouth twice a day Pau Cuello 2 C-Pap Supplies Vick Borden Parviz 1 JlDLois,FACP Metformin HCL take one tablet by 180tabs Nataly Geneva, 1000mg Tablets mouth twice a day M.D., FACP 1 Culturelle Digestive 1 capo daily Unknown Health Probiotic (started 3-4 month 0 Capsules ago) Vitamin D3 1 by mouth every Unknown 25mcg (1000 Ut) day 0 Capsules Proair HFA 2 puffs by mouth Unknown 108(90Base) every 4 hours as 0 mcg/Act Aerosol needed Ferrousul 1 by mouth daily [place] 325(65Fe) mg Pachikara, 0 Tablets M.D. Acetaminophen ER 2 tablet po daily 60tabs Unknown 650mg 0 Tablets ER Epipen JR 2-Rafael inject beneath the 2units Kenia Welch, 0.15mg/0.3ML skin as needed for MD 0 Solution Auto-Inject anaphylaxis Oxybutynin Chloride ER 1 by mouth every Unknown 10mg day 0 Tablets ER 24HR Calcium 600+D3 800 Iu 1 po daily Unknown 0 Multi For Her 50+ 1 po qd Unknown Capsules 0 Vitamin C with edyta hips 1 30tabs Unknown 1000mg Tablets po qd 0 Imodium A-D 2 tabs po x1, then 40tabs Unknown 2mg Tablets 1 tab po after 0 each loose stool; max: 4 tabs/24h prn Medications Administered in Office Medication SIG Qnty Indications Ordering Provider Date Inj, Regadenoson, 0.1 MG Juan Luis Enriquez M.D., 04/02/2017 Injection FACC, FASNC Aminophylline Juan Luis Enriquez M.D., 04/02/2017 Injection FACC, FASNC Technetium TC 99M Juan Luis Enriquez M.D., 04/02/2017 Tetrofosmin, Per Unit Dose Up FACC, FASNC To 40 Millicuries Injection Inj, Regadenoson, 0.1 MG Juan Luis Enriquez M.D., 01/10/2014 Injection FACC, FASNC Technetium TC 99M Juan Luis Enriquez M.D., 01/10/2014 Tetrofosmin, Per Unit Dose Up FACC, FASNC To 40 Millicuries Injection Immunizations CPT Code Status Date Vaccine Lot # [id number] Given 04/02/2018 Tdap - Tetanus/Diptheria/Acellular Pertussis [id number] Given 04/02/2018 Influenza Virus Vaccine, Quadrivalent, Split, [id number] Preservative Free 88157 Given 04/18/2017 Influenza Virus Vaccine, Quadrivalent, Split, [id number] Preservative Free 28216 Given 05/13/2016 Pneumonia Vaccine [id number] 26373 Given 03/29/2016 Influ Virus Vaccine, Quadrivalent, Split Virus, [place] [address] Given 04/24/2015 Influenza Virus Vaccine, Quadrivalent, Split, [id number] Preservative Free 35790 Given 12/13/2014 Pneumococcal Conjugate Vaccine 13 Valent For [id number] Intramuscular Use 07726 Given 2014 Influenza Virus Vaccine, Quadrivalent, Split, [id number] Preservative Free 77723 Given 06/02/2013 Zoster (Zostavax) [id number] Given 04/15/2013 Flu Vaccine NOS 12510 Given 03/17/2012 Influenza Virus 3Yrs & Over [id number] 33218 Given 04/22/2011 Influenza Virus 3Yrs & Over [id number] 52831 Given 08/15/2003 Pneumonia Vaccine Vital Signs Date Vital Result Comment 08/18/2019 10:13am Height 60 inches 5'0" Weight 163.00 lb with shoes Heart Rate 62 /min BP Systolic Sitting 152 mmHg LA BP Diastolic Sitting 66 mmHg LA BP Systolic Standing 148 mmHg BP Diastolic Standing 64 mmHg BMI (Body Mass Index) 31.8 kg/m2 04/13/2019 3:16pm Height 60 inches 5'0" Weight 177.00 lb Heart Rate 64 /min BP Systolic Sitting 166 mmHg Rue reg cuff BP Diastolic Sitting 64 mmHg Rue reg cuff O2 % BldC Oximetry 94 % BMI (Body Mass Index) 34.6 kg/m2 Results Test Acquired Date Facility Test Result H/L Range Note Laboratory test 08/14/2019 [facility] Troponin-I 0.02 ng/mL < 0.03 [address] (TnI) [place] [address] [phone] CBC Auto Diff 08/13/2019 [facility] White 4.9 10^3/uL Normal 3.5-10.[address] [place] [address] Count [phone] Red Blood Count 3.91 10^6/uL Normal 3.70-4.87 Hemoglobin 11.9 g/dL Low 12.0-16.0 Hematocrit 36 % Normal 35-47 Mean Corpuscular Volume 91 fL Normal 80-97 Mean Corpuscular Hemoglobin 31 pg Normal 27-31 Mean Corpuscular HGB Conc 34 g/dL Normal 31-36 Red Cell Distribution Width 17 % High 10-15 Platelet Count 118 10^3/uL Low 150-450 Mean Platelet Volume 7.0 fL Low 7.4-10.4 Abs Neutrophils 3.2 10^3/uL Normal 1.5-7.7 Abs Lymphocytes 1.1 10^3/uL Normal 1.0-4.8 Abs Monocytes 0.4 10^3/uL Normal 0-0.8 Abs Eosinophils 0.2 10^3/uL Normal 0-0.6 Abs Basophils 0.0 10^3/uL Normal 0-0.2 Abs Nucleated RBC 0.0 10^3/uL Granulocyte % 65.3 % Lymphocyte % 21.4 % Monocyte % 8.6 % Eosinophil % 3.9 % Basophil % 0.8 % Nucleated Red Blood Cells % 0.1 Comp Metabolic 08/13/2019 [facility] Sodium 135 mmol/L Normal 135-145 Panel 101 [place], [place] [id number] [phone] Potassium 3.9 mmol/L Normal 3.5-5.0 Chloride 98 mmol/L Low 101-111 Co2 Carbon Dioxide 25 mmol/L Normal 22-32 Anion Gap 12 mmol/L High 2-11 Glucose 165 mg/dL High 70-100 Blood Urea Nitrogen 26 mg/dL High 6-24 Creatinine 1.08 mg/dL High 0.51-0.95 BUN/Creatinine Ratio 24.1 High 8-20 Calcium 9.3 mg/dL Normal 8.6-10.3 Total Protein 7.2 g/dL Normal 6.4-8.9 Albumin 4.2 g/dL Normal 3.2-5.2 Globulin 3.0 g/dL Normal 2-4 Albumin/Globulin Ratio 1.4 Normal 1-3 Total Bilirubin 0.40 mg/dL Normal 0.2-1.0 Alkaline Phosphatase 69 U/L Normal 34-104 Alt 28 U/L Normal 7-52 Ast 31 U/L Normal 13-39 Egfr Non- 50.0 >60 Egfr 60.5 >60 2 Laboratory 08/13/2019 [facility] Troponin-I 0.02 <0.03 3 test finding (TnI) ng/[place] [address] [phone] Inr/Protime 08/13/2019 [facility] Inr 1.20 High 0.82-1.09 4 [address] [place], [place] [id number] [phone] Laboratory 08/13/2019 [facility] B-Type 423 pg/mL High <=100 test [place] [address] Peptide BNP [phone] CBC Auto Diff 06/21/2019 [facility] White Blood 5.8 Normal 3.5 -10.8 Count 10^3/[place] [address] [phone] Red Blood Count 3.74 10^6/uL Normal 3.70-4.87 Hemoglobin 11.4 g/dL Low 12.0-16.0 Hematocrit 34 % Low 35-47 Mean Corpuscular Volume 91 fL Normal 80-97 Mean Corpuscular Hemoglobin 30 pg Normal 27-31 Mean Corpuscular HGB Conc 33 g/dL Normal 31-36 Red Cell Distribution Width 17 % High 10-15 Platelet Count 119 10^3/uL Low 150-450 Mean Platelet Volume 6.9 fL Low 7.4-10.4 Abs Neutrophils 3.6 10^3/uL Normal 1.5-7.7 Abs Lymphocytes 1.1 10^3/uL Normal 1.0-4.8 Abs Monocytes 0.5 10^3/uL Normal 0-0.8 Abs Eosinophils 0.6 10^3/uL Normal 0-0.6 Abs Basophils 0.0 10^3/uL Normal 0-0.2 Abs Nucleated RBC 0.0 10^3/uL Granulocyte % 61.6 % Lymphocyte % 18.9 % Monocyte % 8.5 % Eosinophil % 10.2 % Basophil % 0.8 % Nucleated Red Blood Cells % 0.0 CBC Auto 04/26/2019 [facility] White Blood 7.1 10^3/uL Normal 3.5-10.[address] [place] [address] [phone] Red Blood Count 4.16 10^6/uL Normal 3.70-4.87 Hemoglobin 12.3 g/dL Normal 12.0-16.0 Hematocrit 37 % Normal 35-47 Mean Corpuscular Volume 89 fL Normal 80-97 Mean Corpuscular Hemoglobin 30 pg Normal 27-31 Mean Corpuscular HGB Conc 33 g/dL Normal 31-36 Red Cell Distribution Width 15 % Normal 10-15 Platelet Count 121 10^3/uL Low 150-450 Mean Platelet Volume 7.3 fL Low 7.4-10.4 Abs Neutrophils 4.4 10^3/uL Normal 1.5-7.7 Abs Lymphocytes 1.0 10^3/uL Normal 1.0-4.8 Abs Monocytes 0.4 10^3/uL Normal 0-0.8 Abs Eosinophils 1.2 10^3/uL High 0-0.6 Abs Basophils 0.1 10^3/uL Normal 0-0.2 Abs Nucleated RBC 0.0 10^3/uL Granulocyte % 62.4 % Lymphocyte % 14.1 % Monocyte % 6.0 % Eosinophil % 16.3 % Basophil % 1.2 % Nucleated Red Blood Cells % 0.1 Laboratory test 04/13/2019 [facility] Hemoglobin A1c 6.1 5-7 finding CBC Auto Diff 03/01/2019 [facility] White Blood 5.5 Normal 3.5 -10.[address] Count 10^3/[place] [address] [phone] Red Blood Count 4.06 10^6/uL Normal 3.70-4.87 Hemoglobin 12.1 g/dL Normal 12.0-16.0 Hematocrit 36 % Normal 35-47 Mean Corpuscular Volume 90 fL Normal 80-97 Mean Corpuscular Hemoglobin 30 pg Normal 27-31 Mean Corpuscular HGB Conc 33 g/dL Normal 31-36 Red Cell Distribution Width 16 % High 10-15 Platelet Count 116 10^3/uL Low 150-450 Mean Platelet Volume 7.2 fL Low 7.4-10.4 Abs Neutrophils 3.9 10^3/uL Normal 1.5-7.7 Abs Lymphocytes 0.9 10^3/uL Low 1.0-4.8 Abs Monocytes 0.4 10^3/uL Normal 0-0.8 Abs Eosinophils 0.3 10^3/uL Normal 0-0.6 Abs Basophils 0.0 10^3/uL Normal 0-0.2 Abs Nucleated RBC 0.0 10^3/uL Granulocyte % 70.9 % Lymphocyte % 16.1 % Monocyte % 6.5 % Eosinophil % 5.9 % Basophil % 0.6 % Nucleated Red Blood Cells % 0.3 1 Troponin-I testing on Plasma Separator Tubes (PST) has a known false positive rate of 0.20-0.40%. All positive troponins reflex immediately to secondary confirmatory testing. Using the [employer] DxI 800 Access Immunoassay systems, the 99th percentile upper reference limit was demonstrated to be < 0.03 ng/mL. 2 Because ethnic data is not always readily available, this report includes an eGFR for both -Americans and non- Americans. The National Kidney Disease Education Program (NKDEP) does not endorse the use of the MDRD equation for patients that are not between the ages of 18 and 70, are , have extremes of body size, muscle mass, or nutritional status, or are non- or non-. According to the National Kidney Foundation, irrespective of diagnosis, the stage of the disease is based on the level of kidney function: Stage Description GFR(mL/min/1.73 m(2)) 1 Kidney damage with normal or decreased GFR 90 2 Kidney damage with mild decrease in GFR 60-89 3 Moderate decrease in GFR 30-59 4 Severe decrease in GFR 15-29 5 Kidney failure <15 (or dialysis) 3 Troponin-I testing on Plasma Separator Tubes (PST) has a known false positive rate of 0.20-0.40%. All positive troponins reflex immediately to secondary confirmatory testing. Using the [employer] DxI 800 Access Immunoassay systems, the 99th percentile upper reference limit was demonstrated to be < 0.03 ng/mL. 4 Standard intensity warfarin therapeutic range: 2.0-3.0 High intensity warfarin therapeutic range: 2.5-3.5 Procedures Date Code Description Status 08/18/2019 45279 EKG Tracing & Interpretation Completed 07/26/2019 51206 ECHO Transthoracic, Real-Time 2D With Doppler And Completed Color Flow 07/26/2019 15225 ECHO Transthoracic, Real-Time 2D With Doppler And Completed Color Flow 05/04/2019 [id number] Mammogram Completed 12/21/2018 [id number] Diabetic Retinal Eye Exam Completed 11/20/2018 [id number] Bone Mineral Density Test Completed 11/19/2017 [id number] Diabetic Retinal Eye Exam Completed 10/22/2017 [id number] Mammogram Completed 10/28/2016 [id number] Diabetic Retinal Eye Exam Completed 10/09/2016 [id number] Mammogram Completed 06/21/2016 [id number] Bone Mineral Density Test Completed 09/25/2015 [id number] Mammogram Completed 09/22/2014 [id number] Mammogram Completed 04/25/2014 [id number] Bone Mineral Density Test Completed 03/23/2014 [id number] Diabetic Retinal Eye Exam Completed 12/30/2011 [id number] Mammogram Completed 12/24/2011 [id number] Mammogram Completed 09/20/2010 [id number] Mammogram Completed 01/11/2010 [id number] Colonoscopy Completed Medical Devices Description No Information Available Encounters Type Date Location Provider Dx Diagnosis Office Visit 04/13/2019 [facility] Kenia Welch MD E11.40 Type 2 diabetes 3:00p Medicine - Ccmob mellitus with diabetic neuropathy, unsp I10 Essential (primary) hypertension Assessments Date Code Description Provider 08/18/2019 R07.9 Chest pain, unspecified Juan Luis Enriquez M.D., [facility], [facility] 08/18/2019 I35.0 Nonrheumatic aortic (valve) stenosis Juan Luis Enriquez M.D. , [facility], [facility] 07/26/2019 I35.0 Nonrheumatic aortic (valve) stenosis Juan Luis Enriquez M.D. , [facility], [facility] 07/26/2019 I35.0 Nonrheumatic aortic (valve) stenosis Ica ECHO Schedule 04/13/2019 E11.40 Type 2 diabetes mellitus with Kenia Welch MD diabetic neuropathy, unspecified 04/13/2019 I10 Essential (primary) hypertension Kenia Welch MD Plan of Treatment Future Appointment(s):10/15/2019 1:15 pm - Juan Luis Enriquez M.D., CL[facility]DE [facility]GUY[facility] at [facility]10/04/2019 11:15 am - Juan Luis Enriquez M.D., [facility] at [facility]09/28/2019 9:00 am - Juan Luis Enriquez M.D., CLYDE NGUY[facility] at [facility]11/01/2019 11:00 am - Kenia Welch MD at [facility] - [facility]08/18/2019 - [facility] SRITDF34.9 Chest pain, unspecifiedNew Orders:Stress Test, Exercise Nuclear, Scheduled: 10/04/19Comments:As discussed, we will further evaluate your heart with a transesophageal echocardiogram and stress test.Follow up:after NEM and TEEI35.0 Nonrheumatic aortic (valve) stenosisNew Orders:Echocardiogram, Transesophageal, Scheduled: 09/28/19 Functional Status Description No Information Available Mental Status Description No Information Available Referrals Description No Information Available
[2019-09-28 08:12] LABS: ABS Eosinophils 0.3 10^3/ul (0-0.6); ABS Lymphocytes 0.8 10^3/ul (1.0-4.8); ABS Monocytes 0.4 10^3/ul (0-0.8); Eosinophil % 5.1 %; Hematocrit 37 % (35-47); Hemoglobin 12.4 g/dL (12.0-16.0); Lymphocyte % 12.3 %; Mean Corpuscular HGB Conc 34 g/dL (31-36); Mean Corpuscular Hemoglobin 31 pg (27-31); Mean Corpuscular Volume 91 fL (80-97); Mean Platelet Volume 7.4 fL (7.4-10.4); Platelet Count 121 10^3/uL (150-450); Red Blood Count 4.02 10^6 /uL (3.70-4.87); Red Cell Distribution Width 16 % (10-15); White Blood Count 6.6 10^3/uL (3.5-10.8)
[2019-09-28 08:17] LABS: INR 1.13 (0.82-1.09)
[2019-09-28] MEDS ORDERED: Nitroglycerin TAB 0.4 MG* 0.4 MG TAB SL ONE (08:25)
--- NOTE | 2019-09-28 08:25 | ED ---
HPI Chest Pain - HPI Summary HPI Summary: 69-year-old female presents with chest pain since yesterday. She states that it has been intermittent. She admits that it feels like a pressure on the left side of her chest. She states that it occasionally radiates from back. Does not radiate to her arm. Denies any shortness breath. No palpitations. No cough. No recent illness. She admits some nausea but no vomiting. has a history of high blood pressure diabetes, high cholesterol, myelodysplasia and states that did have blocked vessel at one point in her heart that was on plavix for until she got an ulcer. she was suppose to have an echo today and when she was getting the triage by the nurse she told she had chest pain and was sent here. she was suppose to have stress test next week. She was suppose to have surgery for aortic stenosis next month. her zipper ironer is dr. enriquez. - History of Current Complaint Chief Complaint: EDChestPainROMI Time Seen by Provider: 09/28/19 08:05 Pain Intensity: 2 - Additional Pertinent History Primary Care Physician: [id number] - Allergy/Home Medications Allergies/Adverse Reactions: Allergies Allergy/AdvReac Type Severity Reaction Status Date / Time iodine Allergy Severe Anaphylatic Verified 09/28/19 08:11 Shock Penicillins Allergy Intermediate Hives Verified 09/28/19 08:11 shrimp Allergy Mild Hives Verified 09/28/19 08:11 Adhesive Tape Allergy SKIN PEELS Verified 09/28/19 08:11 aspirin Allergy Unknown Verified 09/28/19 08:11 Reaction Details chlorpheniramine Allergy Nausea And Verified 09/28/19 08:12 [From [facility]icks DayQuil] Vomiting dextromethorphan Allergy Nausea And Verified 09/28/19 08:12 [From Vicks DayQuil] Vomiting guaifenesin Allergy Nausea And Verified 09/28/19 08:12 [From Vicks DayQuil] Vomiting phenylpropanolamine Allergy Nausea And Verified 09/28/19 08:12 [From Vicks DayQuil] Vomiting pseudoephedrine Allergy Nausea And Verified 09/28/19 08:12 [From Vicks DayQuil] Vomiting IVP DYE Allergy ANAPHYLATIC Uncoded 09/28/19 08:11 SHOCK, ASTHMA Home Medications: Home Medications Ascorbic Acid TAB* [Vitamin C TAB*] 1,000 mg PO QAM 08/20/13 [History Confirmed 09/28/19] glipiZIDE TAB* [Glucotrol TAB*] 5 mg PO BID 08/20/13 [History Confirmed 09/28/19 ] Montelukast Sodium TAB* [Singulair 10 MG TAB*] 10 mg PO QAM 01/06/15 [History Confirmed 09/28/19] Albuterol 2.5MG/3ML (0.083%)* [Ventolin 2.5 MG/3 ML NEB.ALANNA*] 2.5 mg INH Q4H PRN 04/02/16 [History Confirmed 09/28/19] Budesonide/Formote 160/4.5(NF) [Symbicort 160/4.5 (NF)] 2 puff INH BID 04/02/16 [History Confirmed 09/28/19] Multivitamins/Minerals TAB* [Theragran/minerals TAB*] 1 tab PO DAILY 04/02/16 [ History Confirmed 09/28/19] Oxybutynin XL TAB* [Ditropan Xl TAB*] 10 mg PO QAM 04/02/16 [History Confirmed 09/28/19] metFORMIN* [Glucophage 1000 MG TAB *] 1,000 mg PO BID 04/02/16 [History Confirmed 09/28/19] Albuterol HFA INHALER* [Ventolin HFA Inhaler*] 2 puff INH QID PRN 06/03/18 [ History Confirmed 09/28/19] Atorvastatin* [Lipitor 40 MG*] 40 mg PO DAILY 06/03/18 [History Confirmed ] Calcium Carbonate/Vitamin D3 [Calcium 600 + Vit D Tablet] 1 tab PO DAILY [History Confirmed 09/28/19] Docusate CAP* [Colace Cap*] 200 mg PO BEDTIME 06/03/18 [History Confirmed ] EPINEPHrine [Epipen 2-Rafael] 0.3 mg IM ONCE PRN 06/03/18 [History Confirmed ] Ferrous Sulfate TAB* 325 mg PO DAILY 06/03/18 [History Confirmed 09/28/19] Fluticasone NASAL SPRAY 50MCG* [Flonase NASAL SPRAY 50MCG*] 1 spray BOTH NARES BID 06/03/18 [History Confirmed 09/28/19] Gemfibrozil TAB* [Lopid TAB*] 600 mg PO BID 06/03/18 [History Confirmed ] Loperamide CAP* [Imodium CAP*] 2 mg PO DAILY PRN 06/03/18 [History Confirmed ] Methylcellulose [Fiber Therapy] 1,500 mg PO DAILY 06/03/18 [History Confirmed ] Metoprolol Succinate XL TAB* [Toprol XL TAB*] 75 mg PO DAILY 06/03/18 [History Confirmed 09/28/19] Nitroglycerin TAB 0.4 MG* 0.4 mg SL Q5M PRN 06/03/18 [History Confirmed 09/28/19 ] Ondansetron ODT TAB* [Zofran 4 MG Odt TAB*] 4 mg PO BID PRN 06/03/18 [History Confirmed 09/28/19] Zolpidem TAB* [Ambien*] 5 - 10 mg PO BEDTIME PRN 06/03/18 [History Confirmed ] Acetaminophen TAB* [Tylenol TAB*] 650 mg PO Q6H PRN #90 tab 06/06/18 [Rx Confirmed 09/28/19] Pantoprazole TAB * [Protonix TAB*] 40 mg PO BID #90 tab 06/06/18 [Rx Confirmed 09/28/19] Acetaminophen with Codeine [Acetaminophen/Codeine Hayley 300-30 mg] 1 tab PO Q4H PRN MDD 4 09/27/19 [History Confirmed 09/28/19] Ammonium Lactate 12% [Lac-Hydrin 12 %] 12 % PERIPH DAILY 09/27/19 [History Confirmed 09/28/19] Cholecalciferol (Vitamin D3) [Vitamin D3] 25 mcg PO DAILY 09/27/19 [History Confirmed 09/28/19] L.acidoph,Paracasei, B.lactis [Probiotic] 1 each PO DAILY 09/27/19 [History Confirmed 09/28/19] hydroCHLOROthiazide [Hydrochlorothiazide] 25 mg PO DAILY 09/27/19 [History Confirmed 09/28/19] Sitagliptin (NF) [Januvia (NF)] 1 tab PO DAILY 09/28/19 [History Confirmed 09/27] PMH/Surg Hx/FS Hx/Imm Hx Endocrine/Hematology History: Reports: Hx Bone Marrow Disease - MYLEODYSPLASIA - LOW PLATELET COUNTS, Hx Diabetes, Hx Anemia, Other Endocrine/Hematological Disorders - MDS Cardiovascular History: Reports: Hx Hypercholesterolemia, Hx Hypertension, Other Cardiovascular Problems/Disorders - CHOLESTEROL CONTROL WITH MED Respiratory History: Reports: Hx Asthma, Hx Chronic Bronchitis, Hx Chronic Obstructive Pulmonary Disease (COPD) - possible - Lauren says no per pt., Hx Pneumonia, Hx Sleep Apnea - current CPAP user, Other Respiratory Problems/ Disorders - NODULE RIGHT LOWER LOBE, emphysema GI History: Reports: Hx Cirrhosis, Hx Gall Bladder Disease, Hx Gastroesophageal Reflux Disease, Hx Irritable Bowel, Other GI Disorders - hx of fluid around gallbladder and liver History: Reports: Hx Kidney Infection, Other Problems/Disorders - UTI's Musculoskeletal History: Reports: Hx Arthritis - NECK AND RIGHT KNEE, Hx Orthopedic Injury - deranged meniscus, Other Musculoskeletal History Denies: Hx Osteoporosis Sensory History: Reports: Hx Cataracts - surgery, Hx Contacts or Glasses Denies: Hx Hearing Aid Opthamlomology History: Reports: Hx Cataracts - surgery, Hx Contacts or Glasses Neurological History: Reports: Hx Migraine, Other Neuro Impairments/Disorders - DIABETIC NEUROPATHY Psychiatric History: Reports: Hx Depression - HX OF - Cancer History Cancer Type, Location and Year: basal cell carcinoma, nose 1999 [place] Hx Chemotherapy: No Hx Radiation Therapy: No - Surgical History Surgery Procedure, Year, and Place: Bladder suspension, D&C's, ovarian cyst removed, appendectomy, HYSTERECTOMY. L oophorectomy Hx Anesthesia Reactions: No - Immunization History Date of Tetanus Vaccine: up to date Date of Influenza Vaccine: 2014 Infectious Disease History: No Infectious Disease History: Denies: Traveled Outside the [place] in Last 30 Days Comment Only: Hx Hepatitis - POSSIBLE NEW DX - Family History Known Family History: Positive: Cardiac Disease, Diabetes - Social History Alcohol Use: None Hx Substance Use: No Substance Use Type: Reports: None Hx Tobacco Use: No Smoking Status (MU): Never Smoked Tobacco Have You Smoked in the Last Year: No Review of Systems Negative: Fever Positive: Chest Pain Negative: Shortness Of Breath, Cough All Other Systems Reviewed And Are Negative: Yes Physical Exam Triage Information Reviewed: Yes Vital Signs On Initial Exam: Initial Vitals Temp Pulse Resp BP Pulse Ox 98.9 F 66 20 185/65 97 09/28/19 08:00 09/28/19 08:00 09/28/19 08:00 09/28/19 08:00 09/28/19 08:00 Vital Signs Reviewed: Yes Appearance: Positive: Well-Appearing Skin: Positive: Warm, Dry Head/Face: Positive: Normal Head/Face Inspection Eyes: Positive: Normal, Conjunctiva Clear ENT: Positive: Pharynx normal Respiratory/Lung Sounds: Positive: Clear to Auscultation, Breath Sounds Present , Other - reproducible chest pain Cardiovascular: Positive: Normal, RRR Abdomen Description: Positive: Nontender, Soft Bowel Sounds: Positive: Present Musculoskeletal: Positive: Normal Neurological: Positive: Normal Psychiatric: Positive: Normal Procedures - Sedation Patient Received Moderate/Deep Sedation with Procedure: No Diagnostics - Vital Signs Vital Signs Temp Pulse Resp BP Pulse Ox 09/28/19 08:00 98.9 F 66 20 185/65 97 - Laboratory Lab Results: Lab Results 09/28/19 09/28/19 Range/Units 08:00 08:00 WBC 6.6 (3.5-10.8) 10^3/uL RBC 4.02 (3.70-4.87) 10^6 /uL Hgb 12.4 (12.0-16.0) g/dL Hct 37 (35-47) % MCV 91 (80-97) fL MCH 31 (27-31) pg MCHC 34 (31-36) g/dL RDW 16 H (10-15) % Plt Count 121 L (150-450) 10^3/uL MPV 7.4 (7.4-10.4) fL Neut % (Auto) 76.2 % Lymph % (Auto) 12.3 % Mclean % (Auto) 6.1 % Eos % (Auto) 5.1 % Baso % (Auto) 0.3 % Absolute Neuts (auto) 5.0 (1.5-7.7) 10^3/ul Absolute Lymphs (auto) 0.8 L (1.0-4.8) 10^3/ul Absolute Monos (auto) 0.4 (0-0.8) 10^3/ul Absolute Eos (auto) 0.3 (0-0.6) 10^3/ul Absolute Basos (auto) 0.0 (0-0.2) 10^3/ul Absolute Nucleated RBC 0.0 10^3/ul Nucleated RBC % 0.0 INR (Anticoag Therapy) 1.13 H (0.82-1.09) Result Diagrams: 09/28/19 08:00 09/28/19 08:00 Lab Statement: Any lab studies that have been ordered have been reviewed, and results considered in the medical decision making process. - Radiology chest Radiology Interpretation Completed By: Radiologist Summary of Radiographic Findings: IMPRESSION: STABLE RIGHT LOWER LUNG NODULE. NO ACTIVE CARDIOPULMONARY DISEASE. - EKG No standard instances Cardiac Rate: NL EKG Rhythm: Sinus Rhythm EKG Comparison: No Significant Change Summary of EKG Findings: sinus rhythm, ST depression lateral leads that is similiar to previous Re-Evaluation - Re-Evaluation First Eval Re-Evaluation Time: 09:22 Change: Unchanged Comment: still has chest pain, no change with nitro, still reproducible Chest Pain Course/Dx - Course Course Of Treatment: 69-year-old female presents with chest pain since yesterday. She states that it has been intermittent. She admits that it feels like a pressure on the left side of her chest. She states that it occasionally radiates from back. Does not radiate to her arm. Denies any shortness breath. No palpitations. No cough. No recent illness. She admits some nausea but no vomiting. has a history of high blood pressure diabetes, high cholesterol, myelodysplasia and states that did have blocked vessel at one point in her heart that was on plavix for until she got an ulcer. she was suppose to have an echo today and when she was getting the triage by the nurse she told she had chest pain and was sent here. she was suppose to have stress test next week. She was suppose to have surgery for aortic stenosis next month. her zipper ironer is dr. enriquez. on exam has reproducible chest pain. ekg shows st depressions in lateral leads but this is not new. wbc normal. troponin .02x2. heart score 3. no change with nitro. likely muscular pain. discussed with dr enriquez that echo will need to be rescheduled but stress test is set up for friday. told if anything changes should return. patient understand and agrees with plan. - Chest Pain Differential Diagnosis/HQI/PQRI: ACS, Angina, Chest Wall, GI Disease - Diagnoses Provider Diagnoses: Atypical chest pain Discharge ED - Sign-Out/Discharge Documenting (check all that apply): Patient Departure - Discharge Plan Condition: Good Disposition: HOME Patient Education Materials: Chest Pain (ED) Referrals: Kenia Welch MD [Primary Care Provider] - Juan Luis Enriquez MD [Medical Doctor] - Additional Instructions: Follow up with cardiology Return to ED if develop any new or worsening symptoms - Billing Disposition and Condition Condition: GOOD Disposition: Home
[2019-09-28 08:31] LABS: Albumin 4.4 g/dL (3.2-5.2); Albumin/Globulin Ratio 1.5 (1-3); BUN/Creatinine Ratio 20.2 (8-20); Calcium 10.1 mg/dL (8.6-10.3); EGFR African American 75.7 (>60); EGFR Non-African American 62.5 (>60); Globulin 2.9 g/dL (2-4); Potassium 4.3 mmol/L (3.5-5.0); Total Bilirubin 0.5 mg/dL (0.2-1.0); Total Protein 7.3 g/dL (6.4-8.9)
[2019-09-28 08:37] LABS: Troponin I 0.02 ng/mL (<0.03)
[2019-09-28 11:47] VITALS: BP 152/67
== END 2019-09-28 11:46 | disposition home or self-care (01) ==
LOC: ED 07:51
DX: R07.89 Other chest pain (principal); E78.00 Pure hypercholesterolemia, unspecified; I10 Essential (primary) hypertension; K21.9 Gastro-esophageal reflux disease without esophagitis; R94.31 Abnormal electrocardiogram [ECG] [EKG]; Z86.79 Personal history of other diseases of the circulatory system; Z85.828 Personal history of other malignant neoplasm of skin; Z79.84 Long term (current) use of oral hypoglycemic drugs; Z88.0 Allergy status to penicillin; Z88.6 Allergy status to analgesic agent; Z79.899 Other long term (current) drug therapy
CPT/HCPCS: 36415; 71046; 80053; 83880; 84484; 85025; 85610; 93005; 99283; A9270-GY

== ENCOUNTER 2020-01-27 16:58 | Observation (INO) ==
[2020-01-27 17:38] LABS: ABS Eosinophils 0.3 10^3/ul (0-0.6); ABS Lymphocytes 0.9 10^3/ul (1.0-4.8); ABS Monocytes 0.4 10^3/ul (0-0.8); ABS Neutrophils 4.7 10^3/ul (1.5-7.7); Eosinophil % 4.7 %; Hematocrit 33 % (35-47); Hemoglobin 11.3 g/dL (12.0-16.0); Lymphocyte % 14.3 %; Mean Corpuscular HGB Conc 34 g/dL (31-36); Mean Corpuscular Hemoglobin 31 pg (27-31); Mean Corpuscular Volume 93 fL (80-97); Mean Platelet Volume 7.1 fL (7.4-10.4); Nucleated Red Blood Cells % 0.1; Platelet Count 125 10^3/uL (150-450); Red Cell Distribution Width 16 % (10-15); White Blood Count 6.4 10^3/uL (3.5-10.8)
[2020-01-27 17:44] LABS: Urine Appearance Cloudy; Urine Bilirubin Negative (Negative); Urine Blood Negative (Negative); Urine Color Yellow; Urine Glucose Negative (Negative); Urine Ketones Negative (Negative); Urine Nitrite Negative (Negative); Urine Protein 2+(100 mg/dL) (Negative); Urine Specific Gravity 1.013 (1.010-1.030); Urine Urobilinogen Negative (Negative)
[2020-01-27 17:48] LABS: Urine Bacteria Absent (Absent); Urine Red Blood Cell Trace(0-2/hpf) (Absent); Urine Squamous Epithelial Cell Present (Absent); Urine Transitional Epithelial Present (Absent); Urine White Blood Cell Trace(0-5/hpf) (Absent)
[2020-01-27 17:53] LABS: Albumin 4.3 g/dL (3.2-5.2); Albumin/Globulin Ratio 1.7 (1-3); BUN/Creatinine Ratio 15.3 (8-20); C Reactive Protein 1.51 mg/L (<8.01); Calcium 9.8 mg/dL (8.6-10.3); EGFR African American 79.8 (>60); EGFR Non-African American 65.9 (>60); Globulin 2.5 g/dL (2-4); Magnesium 1.4 mg/dL (1.9-2.7); Potassium 3.9 mmol/L (3.5-5.0); Total Bilirubin 0.4 mg/dL (0.2-1.0); Total Protein 6.8 g/dL (6.4-8.9); Troponin I 0.01 ng/mL (<0.03)
[2020-01-27 18:33] LABS: TSH Ultra Thyroid Stim Horm 0.49 mcIU/mL (0.34-5.60)
[2020-01-27] MEDS ORDERED: Magnesium Sulfate 2 gm BAG 2 GM/50 ML BAG IVPB ONE (20:42)
[2020-01-27] MEDS ORDERED: LORazepam 2 mg VIAL 1 ml IV PUSH ONE (22:52)
[2020-01-27] MEDS ORDERED: Lorazepam PYXIS KEY PRN (22:52)
[2020-01-27] MEDS ORDERED: Nitro 2% OINT (Nitroglycerin) 1 INCH/PAK TOPICAL ONE (22:53)
[2020-01-27] MEDS ORDERED: Dextrose 50% Syringe 50 ml 25 GM/50 ML SYRINGE IV PUSH PRN (23:13)
[2020-01-27] MEDS ORDERED: Ondansetron 4 mg VIAL 2 MG/ML 2 ml VIAL IV PRN (23:13)
[2020-01-27] MEDS ORDERED: Albuterol 2.5mg/3 ml (0.083%) NEB.SOLN INH PRN (23:17)
[2020-01-28] MEDS ORDERED: Heparin DRIP 25,000 UNITS BAG 25,000 UNITS/500 ML BAG IV SCH (01:45)
[2020-01-28] MEDS: Heparin 5000 UNITS/ML 1 mL VIAL IV SCH ×2 (03:03→10:18)
[2020-01-28 05:42] LABS: ABS Eosinophils 0.3 10^3/ul (0-0.6); ABS Monocytes 0.4 10^3/ul (0-0.8); ABS Neutrophils 3.2 10^3/ul (1.5-7.7); Eosinophil % 5.5 %; Hematocrit 30 % (35-47); Hemoglobin 10.5 g/dL (12.0-16.0); Lymphocyte % 21.2 %; Mean Corpuscular HGB Conc 35 g/dL (31-36); Mean Corpuscular Hemoglobin 32 pg (27-31); Mean Corpuscular Volume 92 fL (80-97); Mean Platelet Volume 7.2 fL (7.4-10.4); Platelet Count 109 10^3/uL (150-450); Red Blood Count 3.27 10^6 /uL (3.70-4.87); Red Cell Distribution Width 16 % (10-15); White Blood Count 4.9 10^3/uL (3.5-10.8)
[2020-01-28 05:57] LABS: BUN/Creatinine Ratio 14.8 (8-20); Calcium 9.3 mg/dL (8.6-10.3); EGFR African American 84.3 (>60); EGFR Non-African American 69.7 (>60); HDL Cholesterol 34.8 mg/dL; Potassium 4.1 mmol/L (3.5-5.0)
[2020-01-28] MEDS ORDERED: Heparin 5000 UNITS/ML 1 mL VIAL SUBCUT SCH (06:00)
[2020-01-28 06:46] LABS: Magnesium 1.7 mg/dL (1.9-2.7)
[2020-01-28] MEDS: Gemfibrozil 600 mg PO SCH ×2 (08:08→15:21)
[2020-01-28] MEDS ORDERED: Perflutren Lipid Microsphere 3 ML VIAL ONE (08:29)
[2020-01-28] MEDS ORDERED: Mometasone/Formoter 200/5 MDI INH SCH (09:00)
[2020-01-28] MEDS ORDERED: Multivitamins/Minerals TAB PO SCH (09:00)
[2020-01-28] MEDS ORDERED: Magnesium Sulfate 2 gm BAG 2 GM/50 ML BAG IV ONE (10:00)
[2020-01-28 15:21] VITALS: BP 146/41
== END 2020-01-28 16:00 | disposition short-term general hospital (02) | DRG 307 ==
LOC: ED 16:58 → MEDTELE 23:08 → INTOOBSV 23:08 → MEDTELE 01-28 01:15
PROVIDERS: ADMIT Nurse Practitioner Family; ATTEND Internal Medicine

== ENCOUNTER 2020-05-30 15:05 | Observation (INO) ==
[2020-05-30 17:10] LABS: ABS Eosinophils 0.2 10^3/ul (0-0.6); ABS Monocytes 0.4 10^3/ul (0-0.8); ABS Neutrophils 2.8 10^3/ul (1.5-7.7); Eosinophil % 5.2 %; Hematocrit 25 % (35-47); Hemoglobin 8.3 g/dL (12.0-16.0); Lymphocyte % 21.9 %; Mean Corpuscular HGB Conc 34 g/dL (31-36); Mean Corpuscular Hemoglobin 30 pg (27-31); Mean Corpuscular Volume 90 fL (80-97); Platelet Count 102 10^3/uL (150-450); Red Blood Count 2.73 10^6 /uL (3.70-4.87); Red Cell Distribution Width 16 % (10-15); White Blood Count 4.5 10^3/uL (3.5-10.8)
[2020-05-30 17:27] LABS: Albumin 4.2 g/dL (3.2-5.2); Albumin/Globulin Ratio 1.8 (1-3); BUN/Creatinine Ratio 26.7 (8-20); C Reactive Protein 3.53 mg/L (<8.01); Calcium 9.3 mg/dL (8.6-10.3); EGFR African American 48.3 (>60); EGFR Non-African American 39.9 (>60); Globulin 2.4 g/dL (2-4); Potassium 4.5 mmol/L (3.5-5.0); Total Bilirubin 0.3 mg/dL (0.2-1.0); Total Protein 6.6 g/dL (6.4-8.9)
[2020-05-30] MEDS ORDERED: Lidocaine PATCH 5% PATCH TRANSDERM ONE (17:35)
[2020-05-30] MEDS ORDERED: Albuterol HFA INHALER 8 gm MDI INH PRN (20:38)
[2020-05-30] MEDS ORDERED: Lidocaine Patch REMOVE PATCH PATCH OFF SCH (21:00)
[2020-05-30] MEDS: Mometasone/Formoter 200/5 MDI INH SCH (22:45)
[2020-05-31] MEDS ORDERED: Lidocaine Patch REMOVE PATCH PATCH OFF ONE (06:30)
[2020-05-31] MEDS: Mometasone/Formoter 200/5 MDI INH SCH ×2 (08:19→20:15)
[2020-05-31] MEDS: Gemfibrozil 600 mg PO SCH ×2 (08:43→16:24)
[2020-05-31] MEDS: Lidocaine PATCH 5% PATCH TRANSDERM SCH (08:47)
[2020-05-31 12:57] LABS: BUN/Creatinine Ratio 30.8 (8-20); Calcium 9.4 mg/dL (8.6-10.3); EGFR Non-African American 52.1 (>60); Potassium 4.5 mmol/L (3.5-5.0)
[2020-05-31 13:01] LABS: Hematocrit 23 % (35-47); Hemoglobin 7.7 g/dL (12.0-16.0); Mean Corpuscular HGB Conc 34 g/dL (31-36); Mean Corpuscular Hemoglobin 31 pg (27-31); Mean Corpuscular Volume 90 fL (80-97); Red Blood Count 2.53 10^6 /uL (3.70-4.87); Red Cell Distribution Width 16 % (10-15); White Blood Count 4.5 10^3/uL (3.5-10.8)
[2020-05-31 13:02] LABS: ABS Eosinophils 0.2 10^3/ul (0-0.6); ABS Lymphocytes 0.6 10^3/ul (1.0-4.8); ABS Monocytes 0.3 10^3/ul (0-0.8); ABS Neutrophils 3.3 10^3/ul (1.5-7.7); Eosinophil % 5.2 %; Lymphocyte % 14.1 %
[2020-05-31 13:13] LABS: Mean Platelet Volume 7.1 fL (7.4-10.4); Platelet Count 82 10^3/uL (150-450)
[2020-05-31] MEDS ORDERED: Lidocaine Patch REMOVE PATCH PATCH OFF SCH (21:00)
[2020-06-01 07:06] LABS: ABS Eosinophils 0.2 10^3/ul (0-0.6); ABS Lymphocytes 0.8 10^3/ul (1.0-4.8); ABS Monocytes 0.3 10^3/ul (0-0.8); ABS Neutrophils 2.9 10^3/ul (1.5-7.7); Eosinophil % 4.8 %; Hematocrit 30 % (35-47); Hemoglobin 10.2 g/dL (12.0-16.0); Lymphocyte % 17.7 %; Mean Corpuscular HGB Conc 35 g/dL (31-36); Mean Corpuscular Hemoglobin 31 pg (27-31); Mean Corpuscular Volume 90 fL (80-97); Mean Platelet Volume 7.5 fL (7.4-10.4); Nucleated Red Blood Cells % 0.2; Platelet Count 71 10^3/uL (150-450); Red Blood Count 3.31 10^6 /uL (3.70-4.87); Red Cell Distribution Width 15 % (10-15); White Blood Count 4.3 10^3/uL (3.5-10.8)
[2020-06-01 07:19] LABS: BUN/Creatinine Ratio 27.8 (8-20); Calcium 8.9 mg/dL (8.6-10.3); EGFR African American 68.3 (>60); EGFR Non-African American 56.5 (>60); Potassium 4.2 mmol/L (3.5-5.0)
[2020-06-01] MEDS: Gemfibrozil 600 mg PO SCH (08:58)
[2020-06-01] MEDS: Lidocaine PATCH 5% PATCH TRANSDERM SCH (09:04)
[2020-06-01] MEDS: Mometasone/Formoter 200/5 MDI INH SCH (09:54)
[2020-06-01 11:05] VITALS: BP 138/59
== END 2020-06-01 11:30 | disposition home or self-care (01) ==
LOC: ED 15:05 → MEDTELE 15:05
PROVIDERS: ADMIT Internal Medicine; ATTEND Pediatrics

== ENCOUNTER 2021-04-18 15:56 | Observation (INO) ==
[2021-04-18 16:45] LABS: ABS Eosinophils 0.2 10^3/ul (0-0.6); ABS Lymphocytes 0.4 10^3/ul (1.0-4.8); ABS Monocytes 0.4 10^3/ul (0-0.8); ABS Neutrophils 2.1 10^3/ul (1.5-7.7); Eosinophil % 7.2 %; Hematocrit 32 % (35-47); Hemoglobin 10.2 g/dL (12.0-16.0); Lymphocyte % 14.1 %; Mean Corpuscular HGB Conc 32 g/dL (31-36); Mean Corpuscular Hemoglobin 27 pg (27-31); Mean Corpuscular Volume 85 fL (80-97); Red Blood Count 3.78 10^6 /uL (3.70-4.87); Red Cell Distribution Width 17 % (10-15); White Blood Count 3.2 10^3/uL (3.5-10.8)
[2021-04-18 17:00] LABS: Troponin I 0.01 ng/mL (<0.03)
[2021-04-18 17:04] LABS: Albumin/Globulin Ratio 1.6 (1-3); C Reactive Protein 5.93 mg/L (<8.01); Calcium 9.2 mg/dL (8.6-10.3); Globulin 2.5 g/dL (2-4); Potassium 4.9 mmol/L (3.5-5.0); Total Bilirubin 0.3 mg/dL (0.2-1.0); Total Protein 6.5 g/dL (6.4-8.9)
[2021-04-18 17:21] LABS: Platelet Count 73 10^3/uL (150-450)
[2021-04-18] MEDS ORDERED: Furosemide 40 mg/4 ml IV VIAL IV SLOW PU ONE (22:25)
[2021-04-18] MEDS ORDERED: Dextrose 50% Syringe 50 ml 25 GM/50 ML SYRINGE IV PUSH PRN (22:25)
[2021-04-18] MEDS ORDERED: HYDROcodone/ACETAMIN 5/325 mg TAB PO PRN (22:51)
[2021-04-18] MEDS ORDERED: Albuterol 2.5mg/3 ml (0.083%) NEB.SOLN INH PRN (22:51)
[2021-04-18 23:35] LABS: Rapid COVID-19 Molecular Undetected (Undetected)
[2021-04-19 00:45] LABS: INR 1.26 (0.86-1.15)
[2021-04-19] MEDS ORDERED: Lidocaine PATCH 5% PATCH TRANSDERM PRN (03:21)
[2021-04-19] MEDS ORDERED: Lidocaine Patch REMOVE PATCH PATCH OFF PRN (03:22)
[2021-04-19] MEDS: Heparin 5000 UNITS/ML 1 mL VIAL SUBCUT SCH ×2 (05:09→12:19)
[2021-04-19 06:06] LABS: ABS Eosinophils 0.2 10^3/ul (0-0.6); ABS Lymphocytes 0.4 10^3/ul (1.0-4.8); ABS Monocytes 0.4 10^3/ul (0-0.8); ABS Neutrophils 2.1 10^3/ul (1.5-7.7); Eosinophil % 6.6 %; Hematocrit 31 % (35-47); Hemoglobin 10.2 g/dL (12.0-16.0); Lymphocyte % 13.6 %; Mean Corpuscular HGB Conc 33 g/dL (31-36); Mean Corpuscular Hemoglobin 28 pg (27-31); Mean Corpuscular Volume 85 fL (80-97); Mean Platelet Volume 7.9 fL (7.4-10.4); Platelet Count 63 10^3/uL (150-450); Red Blood Count 3.67 10^6 /uL (3.70-4.87); Red Cell Distribution Width 17 % (10-15); White Blood Count 3.2 10^3/uL (3.5-10.8)
[2021-04-19 06:16] LABS: INR 1.31 (0.86-1.15)
[2021-04-19 06:24] LABS: Calcium 9.3 mg/dL (8.6-10.3); Potassium 4.5 mmol/L (3.5-5.0)
[2021-04-19 06:25] LABS: Troponin I 0.01 ng/mL (<0.03)
[2021-04-19] MEDS ORDERED: Perflutren Lipid Microsphere 3 ML VIAL ONE (07:36)
[2021-04-19] MEDS ORDERED: Mometasone/Formoter 200/5 MDI INH SCH (09:00)
[2021-04-19] MEDS ORDERED: Polyethylene Glycol 3350 17 GM PACKET PO SCH (09:00)
[2021-04-19] MEDS ORDERED: Senna TAB 8.6 mg TAB PO SCH (09:00)
[2021-04-19] MEDS ORDERED: Aspirin EC 81 mg TAB.EC (enteric coated) PO SCH (09:00)
[2021-04-19] MEDS ORDERED: Furosemide 40 mg/4 ml IV VIAL IV SLOW PU SCH (09:00)
[2021-04-19] MEDS: Gemfibrozil 600 mg PO SCH ×2 (09:02→18:02)
[2021-04-19] MEDS ORDERED: Ondansetron ODT 4 mg TAB 4 MG TAB SL PRN (13:47)
[2021-04-19 16:09] VITALS: BP 106/58
[2021-04-19] MEDS ORDERED: Insulin GLARGINE 100 un/ml 10 ml VIAL SUBCUT SCH (18:00)
== END 2021-04-19 18:30 | disposition home or self-care (01) ==
LOC: ED 15:56 → MEDTELE 15:56 → SUATTDRO 22:23
PROVIDERS: ADMIT Internal Medicine; ATTEND Internal Medicine

== ENCOUNTER 2021-06-05 17:24 | Inpatient (IN) ==
[2021-06-05] MEDS ORDERED: Lactated Ringers 500 ml BAG 500 ML IV ONE (17:38)
[2021-06-05 18:31] LABS: Urine Appearance Cloudy; Urine Bilirubin Negative (Negative); Urine Blood Negative (Negative); Urine Color Yellow; Urine Glucose Negative (Negative); Urine Ketones Negative (Negative); Urine Nitrite Negative (Negative); Urine Protein 1+(30 mg/dL) (Negative); Urine Urobilinogen Negative (Negative)
[2021-06-05 18:47] LABS: Urine Bacteria 1+ (Absent); Urine Red Blood Cell Trace(0-2/hpf) (Absent); Urine Squamous Epithelial Cell Present (Absent); Urine White Blood Cell 2+(11-20/hpf) (Absent)
[2021-06-05 18:53] LABS: Troponin I 0.01 ng/mL (<0.03)
[2021-06-05] MEDS: cefTRIAXone 1 gm/50 mL NS BAG 1 GM/50 ML BAG IV ONE ×2 (18:59→19:32)
[2021-06-05 19:01] LABS: ALT 19 U/L (7-52); AST 81 U/L (13-39); Albumin 3.5 g/dL (3.2-5.2); Albumin/Globulin Ratio 1.3 (1-3); Alkaline Phosphatase 161 U/L (35-149); Anion Gap 8 mmol/L (2-11); Blood Urea Nitrogen 56 mg/dL (6-24); CO2 Carbon Dioxide 22 mmol/L (22-32); Calcium 8.8 mg/dL (8.6-10.3); Chloride 107 mmol/L (101-111); Globulin 2.7 g/dL (2-4); Glucose 91 mg/dL (70-100); Magnesium 2.4 mg/dL (1.9-2.7); Potassium 5.2 mmol/L (3.5-5.0); Sodium 137 mmol/L (135-145); Total Protein 6.2 g/dL (6.4-8.9); eGFR CKD-EPI 25.7 (>60)
[2021-06-05 19:10] LABS: ABS Lymphocytes 0.4 10^3/ul (1.0-4.8); ABS Monocytes 0.4 10^3/ul (0-0.8); ABS Neutrophils 1.7 10^3/ul (1.5-7.7); Eosinophil % 1.8 %; Hematocrit 35 % (35-47); Hemoglobin 10.9 g/dL (12.0-16.0); Lymphocyte % 15.7 %; Mean Corpuscular HGB Conc 31 g/dL (31-36); Mean Corpuscular Hemoglobin 27 pg (27-31); Mean Corpuscular Volume 86 fL (80-97); Mean Platelet Volume 7.9 fL (7.4-10.4); Nucleated Red Blood Cells % 0.1; Platelet Count 48 10^3/uL (150-450); Red Blood Count 4.02 10^6 /uL (3.70-4.87); Red Cell Distribution Width 19 % (10-15); White Blood Count 2.5 10^3/uL (3.5-10.8)
[2021-06-05] MEDS: Lactated Ringers 1000 ml BAG 1,000 ML IV SCH (20:22)
[2021-06-05 20:54] LABS: Rapid COVID-19 Molecular Undetected (Undetected)
[2021-06-05] MEDS ORDERED: Albuterol HFA INHALER 8 gm MDI INH PRN (22:13)
[2021-06-05] MEDS ORDERED: Insulin GLARGINE 100 un/ml 10 ml VIAL SUBCUT SCH (23:00)
[2021-06-05] MEDS: Heparin 5000 UNITS/ML 1 mL VIAL SUBCUT SCH (23:12)
[2021-06-05 23:17] LABS: Hepatitis C Antibody Negative (Negative)
[2021-06-05 23:50] LABS: Corrected Retic Count 1.2 % (0.5-1.5); Hematocrit for Retic CNT 35 % (35-47); Immature Retic Fraction 0.52; RBC Retic Count 4.03 10^6/uL (3.70-4.87)
[2021-06-05 23:56] LABS: % Iron Saturation 4 % (15-55); Iron 22 ug/dL (50-212); Total Iron Binding Capacity 512 mcg/dL (250-450); Transferrin 366 mg/dL (203-362); Unsaturated Iron Binding < 497 ug/dL
[2021-06-06] MEDS ORDERED: Dextrose 50% Syringe 50 ml 25 GM/50 ML SYRINGE IV PUSH PRN (01:05)
[2021-06-06 08:36] LABS: ABS Lymphocytes 0.4 10^3/ul (1.0-4.8); ABS Monocytes 0.3 10^3/ul (0-0.8); ABS Neutrophils 1.3 10^3/ul (1.5-7.7); Eosinophil % 1.9 %; Hematocrit 31 % (35-47); Hemoglobin 9.9 g/dL (12.0-16.0); Lymphocyte % 19.5 %; Mean Corpuscular HGB Conc 32 g/dL (31-36); Mean Corpuscular Hemoglobin 28 pg (27-31); Mean Corpuscular Volume 86 fL (80-97); Mean Platelet Volume 8.5 fL (7.4-10.4); Platelet Count 46 10^3/uL (150-450); Red Blood Count 3.58 10^6 /uL (3.70-4.87); Red Cell Distribution Width 18 % (10-15)
[2021-06-06 08:50] LABS: Calcium 8.6 mg/dL (8.6-10.3); Potassium 5.1 mmol/L (3.5-5.0); eGFR CKD-EPI 34.1 (>60)
[2021-06-06] MEDS ORDERED: Aspirin EC 81 mg TAB.EC (enteric coated) PO SCH (09:00)
[2021-06-06] MEDS: Polyethylene Glycol 3350 17 GM PACKET PO SCH (09:40)
[2021-06-06] MEDS: Heparin 5000 UNITS/ML 1 mL VIAL SUBCUT SCH (09:45)
[2021-06-06 10:15] LABS: INR 1.84 (0.86-1.15)
[2021-06-06] MEDS: cefTRIAXone 2 GM ADDV.VIAL 2 GM in NS 0.9% 100 ml BAG 100 ML IV SCH (11:03)
[2021-06-06] MEDS: Cholecalciferol (VIT D3) 1,000 unit TAB PO SCH (11:04)
[2021-06-06] MEDS: Mometasone/Formoter 200/5 MDI INH SCH ×2 (11:04→20:04)
[2021-06-06] MEDS: AZELASTINE INTRANASAL SCH ×2 (11:48→23:55)
[2021-06-06 14:00] LABS: Body Fluid Source Peritonial Fluid
[2021-06-06 14:54] LABS: Body Fluid Appearance Cloudy; Body Fluid Color Yellow
[2021-06-06 14:59] LABS: Body Fluid WBC 288 /mcL
[2021-06-06] MEDS: Lactated Ringers 1000 ml BAG 1,000 ML IV SCH (15:54)
[2021-06-06 16:42] LABS: Body Fluid Mono 32 %; Body Fluid Total Cells Counted 200
[2021-06-06 19:59] LABS: ABS Lymphocytes 0.3 10^3/ul (1.0-4.8); ABS Monocytes 0.3 10^3/ul (0-0.8); ABS Neutrophils 1.2 10^3/ul (1.5-7.7); Eosinophil % 2.1 %; Hematocrit 29 % (35-47); Hemoglobin 9.3 g/dL (12.0-16.0); Lymphocyte % 18.5 %; Mean Corpuscular HGB Conc 32 g/dL (31-36); Mean Corpuscular Hemoglobin 27 pg (27-31); Mean Corpuscular Volume 86 fL (80-97); Mean Platelet Volume 8.1 fL (7.4-10.4); Platelet Count 47 10^3/uL (150-450); Red Blood Count 3.41 10^6 /uL (3.70-4.87); Red Cell Distribution Width 18 % (10-15); White Blood Count 1.9 10^3/uL (3.5-10.8)
[2021-06-06] MEDS: Insulin GLARGINE 100 un/ml 10 ml VIAL SUBCUT SCH (20:57)
[2021-06-06] MEDS ORDERED: Lidocaine Patch REMOVE NOTE PATCH OFF PRN (21:00)
[2021-06-06] MEDS: Lactulose 30 ml UDC PO SCH (23:58)
[2021-06-07] MEDS: Lactated Ringers 1000 ml BAG 1,000 ML IV SCH (03:12)
[2021-06-07] MEDS: Mometasone/Formoter 200/5 MDI INH SCH ×2 (07:18→20:24)
[2021-06-07] MEDS: AZELASTINE INTRANASAL SCH ×2 (08:43→21:19)
[2021-06-07] MEDS: Cholecalciferol (VIT D3) 1,000 unit TAB PO SCH (08:53)
[2021-06-07] MEDS: Lactulose 30 ml UDC PO SCH ×3 (08:55→21:06)
[2021-06-07] MEDS: Polyethylene Glycol 3350 17 GM PACKET PO SCH (08:55)
[2021-06-07] MEDS: cefTRIAXone 2 GM ADDV.VIAL 2 GM in NS 0.9% 100 ml BAG 100 ML IV SCH (08:59)
[2021-06-07 10:10] LABS: ABS Lymphocytes 0.3 10^3/ul (1.0-4.8); ABS Monocytes 0.2 10^3/ul (0-0.8); ABS Neutrophils 1.1 10^3/ul (1.5-7.7); Eosinophil % 2.2 %; Hematocrit 28 % (35-47); Hemoglobin 8.9 g/dL (12.0-16.0); Lymphocyte % 16.1 %; Mean Corpuscular HGB Conc 32 g/dL (31-36); Mean Corpuscular Hemoglobin 27 pg (27-31); Mean Corpuscular Volume 85 fL (80-97); Platelet Count 40 10^3/uL (150-450); Red Blood Count 3.27 10^6 /uL (3.70-4.87); Red Cell Distribution Width 18 % (10-15); White Blood Count 1.6 10^3/uL (3.5-10.8)
[2021-06-07 10:23] LABS: Calcium 8.2 mg/dL (8.6-10.3); Potassium 4.3 mmol/L (3.5-5.0); eGFR CKD-EPI 51.9 (>60)
[2021-06-07] MEDS: Al Hydrox/Mg Hydrox/Simet LIQ 30 ML UDC PO PRN (21:06)
[2021-06-07] MEDS: Insulin GLARGINE 100 un/ml 10 ml VIAL SUBCUT SCH (21:09)
[2021-06-08 05:48] LABS: ABS Lymphocytes 0.3 10^3/ul (1.0-4.8); ABS Monocytes 0.3 10^3/ul (0-0.8); ABS Neutrophils 1.3 10^3/ul (1.5-7.7); Eosinophil % 1.8 %; Hematocrit 29 % (35-47); Hemoglobin 9.3 g/dL (12.0-16.0); Mean Corpuscular HGB Conc 32 g/dL (31-36); Mean Corpuscular Hemoglobin 28 pg (27-31); Mean Corpuscular Volume 86 fL (80-97); Mean Platelet Volume 7.8 fL (7.4-10.4); Nucleated Red Blood Cells % 0.1; Platelet Count 38 10^3/uL (150-450); Red Blood Count 3.38 10^6 /uL (3.70-4.87); Red Cell Distribution Width 18 % (10-15)
[2021-06-08 06:00] LABS: Calcium 8.3 mg/dL (8.6-10.3); Magnesium 1.9 mg/dL (1.9-2.7); Potassium 4.1 mmol/L (3.5-5.0)
[2021-06-08 06:05] LABS: eGFR CKD-EPI 52.5 (>60)
[2021-06-08] MEDS ORDERED: Magnesium Sulfate IV 1GM/100ML 1 GM/100 ML BAG IV ONE (07:16)
[2021-06-08] MEDS: Lactulose 30 ml UDC PO SCH ×3 (09:03→20:22)
[2021-06-08] MEDS: Cholecalciferol (VIT D3) 1,000 unit TAB PO SCH (09:05)
[2021-06-08] MEDS: cefTRIAXone 2 GM ADDV.VIAL 2 GM in NS 0.9% 100 ml BAG 100 ML IV SCH (09:06)
[2021-06-08] MEDS: AZELASTINE INTRANASAL SCH ×2 (09:06→20:33)
[2021-06-08] MEDS: Polyethylene Glycol 3350 17 GM PACKET PO SCH (09:07)
[2021-06-08] MEDS: Al Hydrox/Mg Hydrox/Simet LIQ 30 ML UDC PO PRN (09:11)
[2021-06-08] MEDS: Mometasone/Formoter 200/5 MDI INH SCH ×2 (09:38→20:21)
[2021-06-08 12:55] LABS: Glucose, BF 77 mg/dL
[2021-06-08 12:58] LABS: Albumin, BF 2.3 g/dL; Fluid Type, Albumin PERITONEAL; Fluid Type, Protein, Total PERITONEAL; Total Protein, BF 3.6 g/dL
[2021-06-08] MEDS: Insulin GLARGINE 100 un/ml 10 ml VIAL SUBCUT SCH (20:31)
[2021-06-09 06:32] LABS: ABS Lymphocytes 0.4 10^3/ul (1.0-4.8); ABS Monocytes 0.4 10^3/ul (0-0.8); ABS Neutrophils 1.3 10^3/ul (1.5-7.7); Eosinophil % 1.6 %; Hematocrit 29 % (35-47); Hemoglobin 9.3 g/dL (12.0-16.0); Mean Corpuscular HGB Conc 32 g/dL (31-36); Mean Corpuscular Hemoglobin 27 pg (27-31); Mean Corpuscular Volume 85 fL (80-97); Mean Platelet Volume 8.3 fL (7.4-10.4); Nucleated Red Blood Cells % 0.2; Platelet Count 39 10^3/uL (150-450); Red Blood Count 3.43 10^6 /uL (3.70-4.87); Red Cell Distribution Width 18 % (10-15); White Blood Count 2.1 10^3/uL (3.5-10.8)
[2021-06-09 06:48] LABS: Calcium 8.2 mg/dL (8.6-10.3); Magnesium 1.9 mg/dL (1.9-2.7); Potassium 4.3 mmol/L (3.5-5.0); eGFR CKD-EPI 54.8 (>60)
[2021-06-09] MEDS ORDERED: Magnesium Sulfate IV 1GM/100ML 1 GM/100 ML BAG IV ONE (07:08)
[2021-06-09] MEDS: Lactulose 30 ml UDC PO SCH ×3 (07:52→20:35)
[2021-06-09] MEDS: Cholecalciferol (VIT D3) 1,000 unit TAB PO SCH (07:53)
[2021-06-09] MEDS: AZELASTINE INTRANASAL SCH ×2 (07:54→20:36)
[2021-06-09] MEDS: Polyethylene Glycol 3350 17 GM PACKET PO SCH (07:56)
[2021-06-09] MEDS: Mometasone/Formoter 200/5 MDI INH SCH ×2 (10:43→21:58)
[2021-06-09] MEDS: Insulin GLARGINE 100 un/ml 10 ml VIAL SUBCUT SCH (20:34)
[2021-06-10 08:34] LABS: Hematocrit 31 % (35-47); Mean Corpuscular HGB Conc 32 g/dL (31-36); Mean Corpuscular Hemoglobin 27 pg (27-31); Mean Corpuscular Volume 85 fL (80-97); Mean Platelet Volume 8.3 fL (7.4-10.4); Platelet Count 46 10^3/uL (150-450); Red Blood Count 3.69 10^6 /uL (3.70-4.87); Red Cell Distribution Width 18 % (10-15); White Blood Count 2.4 10^3/uL (3.5-10.8)
[2021-06-10] MEDS: Mometasone/Formoter 200/5 MDI INH SCH ×2 (09:08→20:13)
[2021-06-10] MEDS: Lactulose 30 ml UDC PO SCH ×3 (09:23→21:53)
[2021-06-10] MEDS: Polyethylene Glycol 3350 17 GM PACKET PO SCH (09:23)
[2021-06-10] MEDS: Cholecalciferol (VIT D3) 1,000 unit TAB PO SCH (09:24)
[2021-06-10] MEDS: AZELASTINE INTRANASAL SCH ×2 (11:07→21:53)
[2021-06-10] MEDS: Insulin GLARGINE 100 un/ml 10 ml VIAL SUBCUT SCH (22:08)
[2021-06-11 06:42] LABS: ABS Eosinophils 0.1 10^3/ul (0-0.6); ABS Lymphocytes 0.4 10^3/ul (1.0-4.8); ABS Monocytes 0.4 10^3/ul (0-0.8); ABS Neutrophils 1.9 10^3/ul (1.5-7.7); Eosinophil % 1.9 %; Hematocrit 30 % (35-47); Hemoglobin 9.7 g/dL (12.0-16.0); Lymphocyte % 13.3 %; Mean Corpuscular HGB Conc 33 g/dL (31-36); Mean Corpuscular Hemoglobin 27 pg (27-31); Mean Corpuscular Volume 84 fL (80-97); Nucleated Red Blood Cells % 0.2; Platelet Count 43 10^3/uL (150-450); Red Blood Count 3.54 10^6 /uL (3.70-4.87); Red Cell Distribution Width 18 % (10-15); White Blood Count 2.7 10^3/uL (3.5-10.8)
[2021-06-11 06:53] LABS: INR 1.42 (0.86-1.15)
[2021-06-11 07:08] LABS: Albumin/Globulin Ratio 1.2 (1-3); Calcium 8.4 mg/dL (8.6-10.3); Globulin 2.5 g/dL (2-4); Magnesium 2.1 mg/dL (1.9-2.7); Potassium 4.3 mmol/L (3.5-5.0); Total Bilirubin 0.5 mg/dL (0.2-1.0); Total Protein 5.5 g/dL (6.4-8.9); eGFR CKD-EPI 41.9 (>60)
[2021-06-11] MEDS: Mometasone/Formoter 200/5 MDI INH SCH ×2 (08:20→21:52)
[2021-06-11] MEDS: Cholecalciferol (VIT D3) 1,000 unit TAB PO SCH (08:29)
[2021-06-11] MEDS: Lactulose 30 ml UDC PO SCH ×3 (08:37→20:42)
[2021-06-11] MEDS: Polyethylene Glycol 3350 17 GM PACKET PO SCH (08:38)
[2021-06-11] MEDS: AZELASTINE INTRANASAL SCH ×2 (08:39→20:15)
[2021-06-11] MEDS ORDERED: Albumin Human 25% 25 GM/100 ML BTL IV ONE (17:10)
[2021-06-11] MEDS ORDERED: Insulin GLARGINE 100 un/ml 10 ml VIAL SUBCUT SCH (21:00)
[2021-06-12 06:47] LABS: Hematocrit 30 % (35-47); Hemoglobin 9.7 g/dL (12.0-16.0); Mean Corpuscular HGB Conc 33 g/dL (31-36); Mean Corpuscular Hemoglobin 28 pg (27-31); Mean Corpuscular Volume 85 fL (80-97); Mean Platelet Volume 8.3 fL (7.4-10.4); Platelet Count 43 10^3/uL (150-450); Red Cell Distribution Width 18 % (10-15); White Blood Count 2.6 10^3/uL (3.5-10.8)
[2021-06-12 06:57] LABS: Calcium 8.3 mg/dL (8.6-10.3); Magnesium 2.1 mg/dL (1.9-2.7); Potassium 4.3 mmol/L (3.5-5.0); eGFR CKD-EPI 39.1 (>60)
[2021-06-12 07:03] LABS: INR 1.53 (0.86-1.15)
[2021-06-12] MEDS: Mometasone/Formoter 200/5 MDI INH SCH ×2 (07:22→20:22)
[2021-06-12] MEDS: Lactulose 30 ml UDC PO SCH ×4 (08:59→20:36)
[2021-06-12] MEDS: AZELASTINE INTRANASAL SCH ×2 (09:01→20:37)
[2021-06-12] MEDS: Cholecalciferol (VIT D3) 1,000 unit TAB PO SCH (09:01)
[2021-06-12] MEDS: Polyethylene Glycol 3350 17 GM PACKET PO SCH (09:02)
[2021-06-12 16:44] LABS: ABS Eosinophils 0.1 10^3/ul (0-0.6); ABS Lymphocytes 0.4 10^3/ul (1.0-4.8); ABS Monocytes 0.5 10^3/ul (0-0.8); ABS Neutrophils 2.5 10^3/ul (1.5-7.7); Eosinophil % 1.7 %; Hematocrit 33 % (35-47); Hemoglobin 10.5 g/dL (12.0-16.0); Lymphocyte % 12.5 %; Mean Corpuscular HGB Conc 32 g/dL (31-36); Mean Corpuscular Hemoglobin 27 pg (27-31); Mean Corpuscular Volume 85 fL (80-97); Mean Platelet Volume 8.4 fL (7.4-10.4); Nucleated Red Blood Cells % 0.2; Platelet Count 53 10^3/uL (150-450); Red Blood Count 3.91 10^6 /uL (3.70-4.87); Red Cell Distribution Width 19 % (10-15); White Blood Count 3.5 10^3/uL (3.5-10.8)
[2021-06-12 16:58] LABS: Albumin 3.4 g/dL (3.2-5.2); Albumin/Globulin Ratio 1.4 (1-3); Calcium 8.5 mg/dL (8.6-10.3); Globulin 2.5 g/dL (2-4); Magnesium 2.2 mg/dL (1.9-2.7); Phosphorus 4.5 mg/dL (2.5-5.0); Potassium 4.5 mmol/L (3.5-5.0); Total Bilirubin 0.6 mg/dL (0.2-1.0); Total Protein 5.9 g/dL (6.4-8.9); eGFR CKD-EPI 32.9 (>60)
[2021-06-12] MEDS ORDERED: Ondansetron 4 mg VIAL 2 MG/ML 2 ml VIAL IV ONE (18:59)
[2021-06-12] MEDS ORDERED: Insulin GLARGINE 100 un/ml 10 ml VIAL SUBCUT SCH (21:00)
[2021-06-13] MEDS: Ondansetron ODT 4 mg TAB 4 MG TAB SL PRN ×2 (00:02→08:39)
[2021-06-13] MEDS ORDERED: Ondansetron ODT 4 mg TAB 4 MG TAB SL SCH (02:00)
[2021-06-13 06:56] LABS: Calcium 8.5 mg/dL (8.6-10.3); Magnesium 2.2 mg/dL (1.9-2.7); Potassium 4.3 mmol/L (3.5-5.0)
[2021-06-13] MEDS: Mometasone/Formoter 200/5 MDI INH SCH ×2 (08:13→20:03)
[2021-06-13] MEDS: Cholecalciferol (VIT D3) 1,000 unit TAB PO SCH (09:41)
[2021-06-13] MEDS: Lactulose 30 ml UDC PO SCH ×4 (09:42→20:53)
[2021-06-13] MEDS: Polyethylene Glycol 3350 17 GM PACKET PO SCH (12:13)
[2021-06-13] MEDS: AZELASTINE INTRANASAL SCH ×2 (12:13→20:54)
[2021-06-13] MEDS: Metoclopramide 5 MG/ML VIAL (10 mg) IV SCH ×3 (15:19→19:35)
[2021-06-13] MEDS ORDERED: Dextrose 50% Syringe 50 ml 25 GM/50 ML SYRINGE IV PUSH PRN (15:23)
[2021-06-13] MEDS ORDERED: Enoxaparin 30 MG/0.3 ML SYR SUBCUT ONE (20:05)
[2021-06-13] MEDS ORDERED: Insulin GLARGINE 100 un/ml 10 ml VIAL SUBCUT SCH (21:00)
[2021-06-14] MEDS: Metoclopramide 5 MG/ML VIAL (10 mg) IV SCH ×4 (01:11→21:38)
[2021-06-14 03:23] LABS: Urine Appearance Cloudy; Urine Bilirubin Negative (Negative); Urine Blood 1+ (Negative); Urine Color Amber; Urine Glucose Negative (Negative); Urine Ketones Negative (Negative); Urine Nitrite Negative (Negative); Urine Protein 1+(30 mg/dL) (Negative); Urine Specific Gravity 1.017 (1.002-1.030); Urine Urobilinogen Negative (Negative)
[2021-06-14 03:36] LABS: Urine Creatinine Concentration 201.63 mg/dL
[2021-06-14 03:48] LABS: Urine Bacteria 1+ (Absent); Urine Red Blood Cell 2+(6-10/hpf) (Absent); Urine Squamous Epithelial Cell Present (Absent); Urine White Blood Cell 2+(11-20/hpf) (Absent)
[2021-06-14 04:23] LABS: Urine Osmo 362 mOsm/kg (150-1150)
[2021-06-14 06:12] LABS: ABS Eosinophils 0.1 10^3/ul (0-0.6); ABS Lymphocytes 0.5 10^3/ul (1.0-4.8); ABS Monocytes 0.5 10^3/ul (0-0.8); ABS Neutrophils 2.2 10^3/ul (1.5-7.7); Eosinophil % 2.3 %; Hematocrit 33 % (35-47); Hemoglobin 10.4 g/dL (12.0-16.0); Lymphocyte % 14.2 %; Mean Corpuscular HGB Conc 32 g/dL (31-36); Mean Corpuscular Hemoglobin 27 pg (27-31); Mean Corpuscular Volume 86 fL (80-97); Mean Platelet Volume 8.9 fL (7.4-10.4); Nucleated Red Blood Cells % 0.1; Platelet Count 56 10^3/uL (150-450); Red Blood Count 3.83 10^6 /uL (3.70-4.87); Red Cell Distribution Width 19 % (10-15); White Blood Count 3.2 10^3/uL (3.5-10.8)
[2021-06-14 06:28] LABS: Albumin/Globulin Ratio 1.3 (1-3); Calcium 8.2 mg/dL (8.6-10.3); Globulin 2.4 g/dL (2-4); Magnesium 2.2 mg/dL (1.9-2.7); Phosphorus 5.5 mg/dL (2.5-5.0); Potassium 4.3 mmol/L (3.5-5.0); Total Bilirubin 0.6 mg/dL (0.2-1.0); Total Protein 5.4 g/dL (6.4-8.9); eGFR CKD-EPI 19.6 (>60)
[2021-06-14] MEDS: Ondansetron ODT 4 mg TAB 4 MG TAB SL PRN (08:03)
[2021-06-14] MEDS: Mometasone/Formoter 200/5 MDI INH SCH ×2 (08:39→20:00)
[2021-06-14] MEDS: Cholecalciferol (VIT D3) 1,000 unit TAB PO SCH (08:51)
[2021-06-14] MEDS: Lactulose 30 ml UDC PO SCH ×3 (08:53→19:11)
[2021-06-14] MEDS ORDERED: Flu vaccine *QUAD* 2021-22* 0.5 ML SYRINGE IM ONE (10:32)
[2021-06-14] MEDS: Polyethylene Glycol 3350 17 GM PACKET PO SCH (11:50)
[2021-06-14] MEDS: AZELASTINE INTRANASAL SCH ×2 (11:51→20:42)
[2021-06-14] MEDS: Albumin Human 25% 25 GM/100 ML BTL IV SCH ×4 (16:16→18:15)
[2021-06-14] MEDS: Enoxaparin 30 MG/0.3 ML SYR SUBCUT SCH (20:43)
[2021-06-14] MEDS ORDERED: Insulin GLARGINE 100 un/ml 10 ml VIAL SUBCUT SCH (21:00)
[2021-06-14] MEDS: Lidocaine PATCH 5% PATCH TRANSDERM PRN (22:50)
[2021-06-15] MEDS: Metoclopramide 5 MG/ML VIAL (10 mg) IV SCH ×5 (01:45→23:12)
[2021-06-15 06:53] LABS: Calcium 8.1 mg/dL (8.6-10.3); Magnesium 2.2 mg/dL (1.9-2.7); Potassium 4.2 mmol/L (3.5-5.0); eGFR CKD-EPI 22.8 (>60)
[2021-06-15 06:56] LABS: Hematocrit 28 % (35-47); Hemoglobin 8.9 g/dL (12.0-16.0); Mean Corpuscular HGB Conc 32 g/dL (31-36); Mean Corpuscular Hemoglobin 27 pg (27-31); Mean Corpuscular Volume 85 fL (80-97); Mean Platelet Volume 8.7 fL (7.4-10.4); Platelet Count 44 10^3/uL (150-450); Red Blood Count 3.28 10^6 /uL (3.70-4.87); Red Cell Distribution Width 19 % (10-15); White Blood Count 2.7 10^3/uL (3.5-10.8)
[2021-06-15] MEDS: Mometasone/Formoter 200/5 MDI INH SCH ×2 (07:13→19:19)
[2021-06-15] MEDS: Cholecalciferol (VIT D3) 1,000 unit TAB PO SCH (08:42)
[2021-06-15] MEDS: Polyethylene Glycol 3350 17 GM PACKET PO SCH (08:43)
[2021-06-15] MEDS: AZELASTINE INTRANASAL SCH ×2 (08:46→23:00)
[2021-06-15] MEDS: Lactulose 30 ml UDC PO SCH ×3 (10:35→17:29)
[2021-06-15] MEDS: Lidocaine PATCH 5% PATCH TRANSDERM PRN (10:35)
[2021-06-15] MEDS: Albumin Human 25% 25 GM/100 ML BTL IV SCH ×4 (10:40→14:08)
[2021-06-15] MEDS: Enoxaparin 30 MG/0.3 ML SYR SUBCUT SCH (20:06)
[2021-06-15] MEDS: Insulin GLARGINE 100 un/ml 10 ml VIAL SUBCUT SCH (22:04)
[2021-06-16] MEDS: Metoclopramide 5 MG/ML VIAL (10 mg) IV SCH ×4 (05:08→17:45)
[2021-06-16] MEDS: Mometasone/Formoter 200/5 MDI INH SCH ×2 (08:07→19:40)
[2021-06-16] MEDS: Polyethylene Glycol 3350 17 GM PACKET PO SCH (08:14)
[2021-06-16] MEDS: Cholecalciferol (VIT D3) 1,000 unit TAB PO SCH (09:05)
[2021-06-16] MEDS: Lactulose 30 ml UDC PO SCH ×3 (09:08→17:44)
[2021-06-16] MEDS: AZELASTINE INTRANASAL SCH ×2 (09:08→21:26)
[2021-06-16 09:44] LABS: ABS Eosinophils 0.1 10^3/ul (0-0.6); ABS Lymphocytes 0.7 10^3/ul (1.0-4.8); ABS Monocytes 0.8 10^3/ul (0-0.8); ABS Neutrophils 3.6 10^3/ul (1.5-7.7); Eosinophil % 1.7 %; Hematocrit 30 % (35-47); Hemoglobin 9.6 g/dL (12.0-16.0); Lymphocyte % 13.3 %; Mean Corpuscular HGB Conc 32 g/dL (31-36); Mean Corpuscular Hemoglobin 28 pg (27-31); Mean Corpuscular Volume 86 fL (80-97); Mean Platelet Volume 8.2 fL (7.4-10.4); Nucleated Red Blood Cells % 0.1; Platelet Count 60 10^3/uL (150-450); Red Cell Distribution Width 19 % (10-15); White Blood Count 5.3 10^3/uL (3.5-10.8)
[2021-06-16 09:49] LABS: Calcium 8.5 mg/dL (8.6-10.3); Magnesium 2.3 mg/dL (1.9-2.7); Potassium 4.5 mmol/L (3.5-5.0); Total Protein 5.7 g/dL (6.4-8.9); eGFR CKD-EPI 25.1 (>60)
[2021-06-16 09:50] LABS: Albumin/Globulin Ratio 2.4 (1-3); Globulin 1.7 g/dL (2-4)
[2021-06-16] MEDS: Ondansetron ODT 4 mg TAB 4 MG TAB SL PRN (12:44)
[2021-06-16 17:32] LABS: Body Fluid Source Peritonial Fluid
[2021-06-16] MEDS ORDERED: Albumin Human 25% 25 GM/100 ML BTL IV SCH (18:30)
[2021-06-16] MEDS ORDERED: Albumin Human 25% 25 GM/100 ML BTL IV ONE (18:32)
[2021-06-16 18:34] LABS: Body Fluid Appearance Cloudy; Body Fluid Color Yellow
[2021-06-16 18:37] LABS: Body Fluid WBC 177 /mcL
[2021-06-16 18:56] LABS: Body Fluid Mono 32 %; Body Fluid Total Cells Counted 200
[2021-06-16] MEDS: Enoxaparin 30 MG/0.3 ML SYR SUBCUT SCH (20:07)
[2021-06-16] MEDS: Insulin GLARGINE 100 un/ml 10 ml VIAL SUBCUT SCH (21:44)
[2021-06-17] MEDS: Metoclopramide 5 MG/ML VIAL (10 mg) IV SCH ×4 (00:16→18:04)
[2021-06-17 06:13] LABS: ABS Eosinophils 0.1 10^3/ul (0-0.6); ABS Lymphocytes 0.5 10^3/ul (1.0-4.8); ABS Monocytes 0.8 10^3/ul (0-0.8); ABS Neutrophils 3.1 10^3/ul (1.5-7.7); Eosinophil % 2.1 %; Hematocrit 30 % (35-47); Hemoglobin 9.7 g/dL (12.0-16.0); Lymphocyte % 11.7 %; Mean Corpuscular HGB Conc 32 g/dL (31-36); Mean Corpuscular Hemoglobin 27 pg (27-31); Mean Corpuscular Volume 86 fL (80-97); Mean Platelet Volume 7.5 fL (7.4-10.4); Nucleated Red Blood Cells % 0.1; Platelet Count 51 10^3/uL (150-450); Red Blood Count 3.53 10^6 /uL (3.70-4.87); Red Cell Distribution Width 19 % (10-15); White Blood Count 4.5 10^3/uL (3.5-10.8)
[2021-06-17 06:30] LABS: Calcium 8.4 mg/dL (8.6-10.3); Magnesium 2.2 mg/dL (1.9-2.7); Phosphorus 4.2 mg/dL (2.5-5.0); Potassium 4.4 mmol/L (3.5-5.0); eGFR CKD-EPI 29.4 (>60)
[2021-06-17] MEDS: Mometasone/Formoter 200/5 MDI INH SCH ×2 (07:50→20:06)
[2021-06-17] MEDS: Lactulose 30 ml UDC PO SCH ×3 (08:34→18:04)
[2021-06-17] MEDS: Cholecalciferol (VIT D3) 1,000 unit TAB PO SCH (08:40)
[2021-06-17] MEDS: Polyethylene Glycol 3350 17 GM PACKET PO SCH (08:41)
[2021-06-17] MEDS: AZELASTINE INTRANASAL SCH ×2 (08:42→22:10)
[2021-06-17] MEDS: Ondansetron ODT 4 mg TAB 4 MG TAB SL PRN (09:18)
[2021-06-17] MEDS: Albumin Human 25% 25 GM/100 ML BTL IV SCH ×2 (19:52→23:26)
[2021-06-17] MEDS: Insulin GLARGINE 100 un/ml 10 ml VIAL SUBCUT SCH (22:27)
[2021-06-17] MEDS: Enoxaparin 30 MG/0.3 ML SYR SUBCUT SCH ×2 (22:48→23:12)
[2021-06-18] MEDS: Metoclopramide 5 MG/ML VIAL (10 mg) IV SCH ×4 (01:01→18:22)
[2021-06-18 06:30] LABS: ABS Eosinophils 0.1 10^3/ul (0-0.6); ABS Lymphocytes 0.5 10^3/ul (1.0-4.8); ABS Monocytes 0.7 10^3/ul (0-0.8); ABS Neutrophils 3.1 10^3/ul (1.5-7.7); Eosinophil % 2.4 %; Hematocrit 31 % (35-47); Hemoglobin 9.9 g/dL (12.0-16.0); Lymphocyte % 11.8 %; Mean Corpuscular HGB Conc 32 g/dL (31-36); Mean Corpuscular Hemoglobin 27 pg (27-31); Mean Corpuscular Volume 86 fL (80-97); Mean Platelet Volume 7.5 fL (7.4-10.4); Platelet Count 50 10^3/uL (150-450); Red Blood Count 3.62 10^6 /uL (3.70-4.87); Red Cell Distribution Width 20 % (10-15); White Blood Count 4.5 10^3/uL (3.5-10.8)
[2021-06-18 06:46] LABS: Calcium 8.8 mg/dL (8.6-10.3); Magnesium 2.3 mg/dL (1.9-2.7); Potassium 4.2 mmol/L (3.5-5.0); eGFR CKD-EPI 38.1 (>60)
[2021-06-18 06:48] LABS: INR 1.7 (0.86-1.15)
[2021-06-18] MEDS: Mometasone/Formoter 200/5 MDI INH SCH ×2 (07:20→18:49)
[2021-06-18] MEDS: Ondansetron ODT 4 mg TAB 4 MG TAB SL PRN ×2 (08:07→16:32)
[2021-06-18] MEDS: Lactulose 30 ml UDC PO SCH ×3 (08:08→16:32)
[2021-06-18] MEDS: Cholecalciferol (VIT D3) 1,000 unit TAB PO SCH (08:08)
[2021-06-18] MEDS: AZELASTINE INTRANASAL SCH ×2 (08:20→21:41)
[2021-06-18] MEDS: Polyethylene Glycol 3350 17 GM PACKET PO SCH (08:48)
[2021-06-18] MEDS: Albumin Human 25% 25 GM/100 ML BTL IV SCH ×2 (16:23→21:14)
[2021-06-18] MEDS ORDERED: Lactulose 30 ml UDC PO ONE (20:03)
[2021-06-18] MEDS: Insulin GLARGINE 100 un/ml 10 ml VIAL SUBCUT SCH (21:40)
[2021-06-18] MEDS: Enoxaparin 30 MG/0.3 ML SYR SUBCUT SCH (21:40)
[2021-06-19] MEDS: Metoclopramide 5 MG/ML VIAL (10 mg) IV SCH ×2 (00:58→05:38)
[2021-06-19] MEDS: Mometasone/Formoter 200/5 MDI INH SCH ×3 (02:29→19:16)
[2021-06-19] MEDS: cefTRIAXone 2 GM ADDV.VIAL 2 GM in NS 0.9% 100 ml BAG 100 ML IV SCH (04:29)
[2021-06-19 06:05] LABS: INR 1.7 (0.86-1.15)
[2021-06-19 06:07] LABS: Calcium 9.1 mg/dL (8.6-10.3); Magnesium 2.4 mg/dL (1.9-2.7); Potassium 4.6 mmol/L (3.5-5.0); eGFR CKD-EPI 27.9 (>60)
[2021-06-19] MEDS: Lactulose 30 ml UDC PO SCH ×3 (08:59→22:45)
[2021-06-19] MEDS: Cholecalciferol (VIT D3) 1,000 unit TAB PO SCH (08:59)
[2021-06-19] MEDS ORDERED: Octreotide Acetate 50 MCG/ML ML SUBCUT SCH (09:00)
[2021-06-19] MEDS: Polyethylene Glycol 3350 17 GM PACKET PO SCH ×2 (09:18→09:21)
[2021-06-19] MEDS: Ondansetron ODT 4 mg TAB 4 MG TAB SL SCH ×3 (09:18→23:11)
[2021-06-19] MEDS: AZELASTINE INTRANASAL SCH ×2 (09:20→22:50)
[2021-06-19] MEDS: Metoclopramide 5 MG/ML VIAL (10 mg) IV PRN (12:50)
[2021-06-19] MEDS: Albumin Human 25% 25 GM/100 ML BTL IV SCH ×2 (13:39→15:25)
[2021-06-19] MEDS: Enoxaparin 30 MG/0.3 ML SYR SUBCUT SCH (22:49)
[2021-06-19] MEDS: Insulin GLARGINE 100 un/ml 10 ml VIAL SUBCUT SCH (22:58)
[2021-06-20] MEDS: Ondansetron ODT 4 mg TAB 4 MG TAB SL SCH ×4 (03:45→22:41)
[2021-06-20] MEDS: cefTRIAXone 2 GM ADDV.VIAL 2 GM in NS 0.9% 100 ml BAG 100 ML IV SCH (03:45)
[2021-06-20 05:31] LABS: ABS Eosinophils 0.1 10^3/ul (0-0.6); ABS Lymphocytes 0.4 10^3/ul (1.0-4.8); ABS Monocytes 0.6 10^3/ul (0-0.8); ABS Neutrophils 2.2 10^3/ul (1.5-7.7); Eosinophil % 2.6 %; Hematocrit 32 % (35-47); Mean Corpuscular HGB Conc 32 g/dL (31-36); Mean Corpuscular Hemoglobin 28 pg (27-31); Mean Corpuscular Volume 87 fL (80-97); Mean Platelet Volume 7.9 fL (7.4-10.4); Nucleated Red Blood Cells % 0.1; Platelet Count 40 10^3/uL (150-450); Red Blood Count 3.63 10^6 /uL (3.70-4.87); Red Cell Distribution Width 21 % (10-15); White Blood Count 3.3 10^3/uL (3.5-10.8)
[2021-06-20 05:41] LABS: Calcium 9.3 mg/dL (8.6-10.3); Magnesium 2.4 mg/dL (1.9-2.7); Potassium 3.9 mmol/L (3.5-5.0); eGFR CKD-EPI 31.2 (>60)
[2021-06-20] MEDS: Mometasone/Formoter 200/5 MDI INH SCH ×2 (07:30→19:01)
[2021-06-20] MEDS: Cholecalciferol (VIT D3) 1,000 unit TAB PO SCH (09:09)
[2021-06-20] MEDS: Lactulose 30 ml UDC PO SCH ×3 (09:10→17:44)
[2021-06-20] MEDS: Polyethylene Glycol 3350 17 GM PACKET PO SCH (09:11)
[2021-06-20] MEDS: Lidocaine PATCH 5% PATCH TRANSDERM PRN (11:10)
[2021-06-20] MEDS: Metoclopramide 5 MG/ML VIAL (10 mg) IV PRN (11:10)
[2021-06-20] MEDS: AZELASTINE INTRANASAL SCH ×2 (11:12→22:31)
[2021-06-20] MEDS: Albumin Human 25% 25 GM/100 ML BTL IV SCH ×2 (16:45→19:55)
[2021-06-20] MEDS ORDERED: Prochlorperazine 5 mg/ml 2 ml VIAL (10 mg) IV PRN (17:58)
[2021-06-20] MEDS: Insulin GLARGINE 100 un/ml 10 ml VIAL SUBCUT SCH (22:30)
[2021-06-21] MEDS: Metoclopramide 5 MG/ML VIAL (10 mg) IV PRN ×2 (00:41→21:19)
[2021-06-21] MEDS: cefTRIAXone 2 GM ADDV.VIAL 2 GM in NS 0.9% 100 ml BAG 100 ML IV SCH (03:47)
[2021-06-21] MEDS: Ondansetron ODT 4 mg TAB 4 MG TAB SL SCH ×4 (03:47→20:54)
[2021-06-21 05:23] LABS: Hematocrit 30 % (35-47); Hemoglobin 9.7 g/dL (12.0-16.0); Mean Corpuscular HGB Conc 32 g/dL (31-36); Mean Corpuscular Hemoglobin 28 pg (27-31); Mean Corpuscular Volume 87 fL (80-97); Mean Platelet Volume 8.2 fL (7.4-10.4); Platelet Count 34 10^3/uL (150-450); Red Cell Distribution Width 20 % (10-15); White Blood Count 2.5 10^3/uL (3.5-10.8)
[2021-06-21 05:40] LABS: Calcium 8.9 mg/dL (8.6-10.3); Magnesium 2.1 mg/dL (1.9-2.7); Potassium 3.7 mmol/L (3.5-5.0); eGFR CKD-EPI 31.9 (>60)
[2021-06-21] MEDS: Mometasone/Formoter 200/5 MDI INH SCH (07:34)
[2021-06-21] MEDS: Lactulose 30 ml UDC PO SCH ×3 (08:27→18:04)
[2021-06-21] MEDS: Cholecalciferol (VIT D3) 1,000 unit TAB PO SCH (08:28)
[2021-06-21] MEDS: AZELASTINE INTRANASAL SCH ×2 (08:32→20:55)
[2021-06-21] MEDS: Polyethylene Glycol 3350 17 GM PACKET PO SCH (08:42)
[2021-06-21] MEDS: Insulin GLARGINE 100 un/ml 10 ml VIAL SUBCUT SCH (21:01)
[2021-06-22] MEDS: Mometasone/Formoter 200/5 MDI INH SCH ×3 (00:14→20:25)
[2021-06-22] MEDS: cefTRIAXone 2 GM ADDV.VIAL 2 GM in NS 0.9% 100 ml BAG 100 ML IV SCH (03:38)
[2021-06-22] MEDS: Ondansetron ODT 4 mg TAB 4 MG TAB SL SCH ×3 (03:39→14:41)
[2021-06-22 05:12] LABS: Calcium 8.9 mg/dL (8.6-10.3); Magnesium 2.2 mg/dL (1.9-2.7); Phosphorus 4.9 mg/dL (2.5-5.0); Potassium 4.2 mmol/L (3.5-5.0); eGFR CKD-EPI 19.9 (>60)
[2021-06-22] MEDS: Polyethylene Glycol 3350 17 GM PACKET PO SCH (08:36)
[2021-06-22] MEDS: Lactulose 30 ml UDC PO SCH ×3 (08:37→17:42)
[2021-06-22] MEDS: Cholecalciferol (VIT D3) 1,000 unit TAB PO SCH (08:38)
[2021-06-22] MEDS: AZELASTINE INTRANASAL SCH ×2 (08:40→20:20)
[2021-06-22] MEDS: Albumin Human 25% 25 GM/100 ML BTL IV SCH ×2 (10:24→12:23)
[2021-06-22] MEDS: Metoclopramide 5 MG/ML VIAL (10 mg) IV PRN (16:51)
[2021-06-22] MEDS ORDERED: Lorazepam PYXIS KEY PRN (17:40)
[2021-06-22] MEDS: Ondansetron 4 mg VIAL 2 MG/ML 2 ml VIAL IV SCH ×2 (17:42→22:49)
[2021-06-23 00:55] LABS: Body Fluid Source Peritonial Fluid
[2021-06-23 01:25] LABS: Body Fluid WBC 186 /mcL
[2021-06-23 02:44] LABS: Body Fluid Appearance Clear; Body Fluid Color Yellow; Body Fluid Mono 45 %; Body Fluid NRBC 1; Body Fluid Total Cells Counted 200
[2021-06-23] MEDS: Ondansetron 4 mg VIAL 2 MG/ML 2 ml VIAL IV SCH ×4 (05:03→23:55)
[2021-06-23] MEDS: Mometasone/Formoter 200/5 MDI INH SCH ×2 (09:19→19:58)
[2021-06-23] MEDS: Lactulose 30 ml UDC PO SCH ×4 (09:25→17:57)
[2021-06-23] MEDS: Polyethylene Glycol 3350 17 GM PACKET PO SCH (09:26)
[2021-06-23] MEDS: AZELASTINE INTRANASAL SCH ×2 (09:28→22:02)
[2021-06-23] MEDS: LORazepam 2 mg VIAL 1 ml IV PUSH PRN (16:43)
[2021-06-23] MEDS: Prochlorperazine 5 mg/ml 2 ml VIAL (10 mg) IV PRN (17:56)
[2021-06-24] MEDS: Ondansetron 4 mg VIAL 2 MG/ML 2 ml VIAL IV SCH ×4 (04:44→22:20)
[2021-06-24] MEDS: AZELASTINE INTRANASAL SCH ×2 (08:30→21:27)
[2021-06-24] MEDS: Lactulose 30 ml UDC PO SCH ×2 (08:30→12:04)
[2021-06-24] MEDS: Polyethylene Glycol 3350 17 GM PACKET PO SCH (08:35)
[2021-06-24] MEDS: Mometasone/Formoter 200/5 MDI INH SCH ×2 (11:58→19:49)
[2021-06-24] MEDS: LORazepam 2 mg VIAL 1 ml IV PUSH PRN (23:35)
[2021-06-25] MEDS: Ondansetron 4 mg VIAL 2 MG/ML 2 ml VIAL IV SCH ×4 (03:50→22:40)
[2021-06-25] MEDS: LORazepam 2 mg VIAL 1 ml IV PUSH PRN (03:50)
[2021-06-25] MEDS: Mometasone/Formoter 200/5 MDI INH SCH ×2 (08:42→19:23)
[2021-06-25] MEDS: Prochlorperazine 5 mg/ml 2 ml VIAL (10 mg) IV PRN (08:46)
[2021-06-25] MEDS: Polyethylene Glycol 3350 17 GM PACKET PO SCH (08:49)
[2021-06-25] MEDS: AZELASTINE INTRANASAL SCH ×2 (08:49→20:18)
[2021-06-25] MEDS: HYDROmorphone 0.5 MG/0.5 ML SYRINGE IV SLOW PU PRN ×2 (14:15→14:30)
[2021-06-26] MEDS: Ondansetron 4 mg VIAL 2 MG/ML 2 ml VIAL IV SCH ×4 (04:03→23:37)
[2021-06-26] MEDS: HYDROmorphone 0.5 MG/0.5 ML SYRINGE IV SLOW PU PRN (05:09)
[2021-06-26 06:17] LABS: INR 1.53 (0.86-1.15)
[2021-06-26] MEDS: AZELASTINE INTRANASAL SCH ×2 (07:30→20:57)
[2021-06-26] MEDS: Polyethylene Glycol 3350 17 GM PACKET PO SCH ×2 (07:31→10:23)
[2021-06-26] MEDS: Mometasone/Formoter 200/5 MDI INH SCH ×2 (07:49→20:02)
[2021-06-26 10:07] LABS: ABS Basophils 0.1 10^3/ul (0-0.2); ABS Eosinophils 0.1 10^3/ul (0-0.6); ABS Lymphocytes 0.6 10^3/ul (1.0-4.8); ABS Monocytes 0.6 10^3/ul (0-0.8); ABS Neutrophils 3.9 10^3/ul (1.5-7.7); Eosinophil % 1.8 %; Hematocrit 35 % (35-47); Hemoglobin 11.3 g/dL (12.0-16.0); Lymphocyte % 11.3 %; Mean Corpuscular HGB Conc 32 g/dL (31-36); Mean Corpuscular Hemoglobin 28 pg (27-31); Mean Corpuscular Volume 87 fL (80-97); Mean Platelet Volume 8.3 fL (7.4-10.4); Platelet Count 49 10^3/uL (150-450); Red Blood Count 4.05 10^6 /uL (3.70-4.87); Red Cell Distribution Width 22 % (10-15); White Blood Count 5.3 10^3/uL (3.5-10.8)
[2021-06-26] MEDS ORDERED: Phytonadione Oral Solution 5 MG/25 ML UDC PO ONE (11:30)
[2021-06-26 22:01] LABS: Platelet Count 53 10^3/uL (150-450)
[2021-06-27] MEDS: Ondansetron 4 mg VIAL 2 MG/ML 2 ml VIAL IV SCH ×3 (04:57→17:27)
[2021-06-27 05:04] LABS: ABS Eosinophils 0.1 10^3/ul (0-0.6); ABS Lymphocytes 0.4 10^3/ul (1.0-4.8); ABS Monocytes 0.4 10^3/ul (0-0.8); ABS Neutrophils 2.6 10^3/ul (1.5-7.7); Eosinophil % 2.2 %; Hematocrit 35 % (35-47); Hemoglobin 11.3 g/dL (12.0-16.0); Lymphocyte % 12.3 %; Mean Corpuscular HGB Conc 32 g/dL (31-36); Mean Corpuscular Hemoglobin 28 pg (27-31); Mean Corpuscular Volume 87 fL (80-97); Mean Platelet Volume 8.3 fL (7.4-10.4); Nucleated Red Blood Cells % 0.1; Platelet Count 48 10^3/uL (150-450); Red Blood Count 4.04 10^6 /uL (3.70-4.87); Red Cell Distribution Width 22 % (10-15); White Blood Count 3.5 10^3/uL (3.5-10.8)
[2021-06-27] MEDS: HYDROmorphone 0.5 MG/0.5 ML SYRINGE IV SLOW PU PRN ×3 (05:07→19:28)
[2021-06-27 05:08] LABS: INR 1.53 (0.86-1.15)
[2021-06-27] MEDS: Mometasone/Formoter 200/5 MDI INH SCH ×2 (07:11→19:06)
[2021-06-27] MEDS ORDERED: fentaNYL 100 mcg/2 ml 50 MCG/ML VIAL ONE (09:09)
[2021-06-27 11:54] VITALS: BP 137/48
[2021-06-27] MEDS: AZELASTINE INTRANASAL SCH ×2 (11:57→22:47)
[2021-06-27] MEDS: Polyethylene Glycol 3350 17 GM PACKET PO SCH (12:38)
[2021-06-27] MEDS: LORazepam 2 mg VIAL 1 ml IV PUSH PRN (19:28)
[2021-06-28] MEDS: HYDROmorphone 0.5 MG/0.5 ML SYRINGE IV SLOW PU PRN (00:28)
[2021-06-28] MEDS: Atropine 1% OPHTH.SOL 1 DROP BTL 2-5 ML PRN ×2 (01:46→04:40)
[2021-06-28] MEDS: Ondansetron 4 mg VIAL 2 MG/ML 2 ml VIAL IV SCH ×2 (01:46→04:39)
[2021-06-28] MEDS: LORazepam 2 mg VIAL 1 ml IV PUSH PRN (03:07)
[2021-06-28] MEDS: Mometasone/Formoter 200/5 MDI INH SCH (08:07)
[2021-06-28] MEDS ORDERED: Morphine ORAL CONCENTRATE 5 MG/0.25 ML ORAL.SYRIN PO PRN ×2 (09:21→09:32)
[2021-06-28] MEDS: AZELASTINE INTRANASAL SCH (10:00)
[2021-06-28] MEDS: Polyethylene Glycol 3350 17 GM PACKET PO SCH (10:01)
== END 2021-06-28 10:40 | disposition expired | DRG 987 ==
LOC: ED 17:24 → EDHOLD 22:10 → SUATTDRO 22:10 → MEDTELE 06-06 14:27 → MED 06-15 04:59
PROVIDERS: ADMIT Internal Medicine; ATTEND Internal Medicine